=== PATIENT | female | born 1940 | race Caucasian/White ===

== ENCOUNTER 2016-12-30 03:10 | Inpatient (IN) | payer MEDICARE, MEDICAID ==
[2016-12-30] MEDS ORDERED: Promethazine 25 MG in Sodium Chloride 0.9% 50 ML IV STA (03:30)
[2016-12-30] MEDS ORDERED: diphenhydrAMINE 50 MG/ML SDV IVPUSH ONE (03:54)
--- NOTE | 2016-12-30 04:00 | EDM.PDOC ---
ED HPI GENERAL MEDICAL PROBLEM - General Chief Complaint: General Stated Complaint: NAUSEA Time Seen by Provider: 12/30/16 03:40 Source of Information: Reports: Patient History Limitations: Reports: No limitations - History of Present Illness INITIAL COMMENTS - FREE TEXT/NARRATIVE: Patient presents with complaints of explosive diarrhea and vomiting for the last 3 hours. She states she has had multiple episodes of both prior to coming here. Hit very suddenly. Stools are "like water". Continues to feel nauseated. Has vomited x1 and had multiple loose stools by my arrival in the ER. States was having more trouble breathing as of late. Was in [place] on the to get refills of her oxygen and supplies and had an oxygen sat done there and it was low so they sent her to the [place] [facility]. She was advised to be admitted for her lungs at that time but didn't "want to be in another facility other than here with her own doctors". She was sent home with Levaquin which they have not filled. No other antibiotic use. She denies fever. Has abdominal cramping prior to stools. "is wore out already from this". Onset: sudden Duration: Hour(s): Location: Reports: abdomen Quality: Reports: Other (cramping) Associated Symptoms: Reports: nausea/vomiting, weakness, other (diarrhea). Denies: fever/chills - Related Data Allergies Allergy/AdvReac Type Severity Reaction Status Date / Time amoxicillin Allergy Itching Verified 06/06/16 19:35 aspirin Allergy Cannot Verified 06/06/16 19:35 Remember cephalexin monohydrate Allergy Dizziness Verified 06/06/16 19:35 [From Keflex] codeine Allergy Nausea Verified 06/06/16 19:35 gabapentin Allergy Cannot Verified 06/06/16 19:35 Remember kiwi Allergy Itching Verified 06/06/16 19:35 loratadine Allergy Headache Verified 06/06/16 19:35 montelukast sodium Allergy Nausea Verified 06/06/16 19:35 [From Singulair] morphine Allergy Nausea Verified 06/06/16 19:35 paroxetine HCl [From Paxil] Allergy Itching Verified 06/06/16 19:35 pregabalin [From Lyrica] Allergy Syncope Verified 06/06/16 19:35 procaine HCl [From Novocain] Allergy Rash Verified 06/06/16 19:35 solumedrol Allergy Itching Uncoded 06/06/16 19:35 Home Meds: Home Meds ALPRAZolam [Alprazolam] 0.5 mg PO Q8H PRN 05/01/14 [History] Cyanocobalamin (Vitamin B12) [Vitamin B12] 1,000 mcg IM Q30D 05/01/14 [History] Esomeprazole Magnesium [Nexium] 40 mg PO ACBREAKFAST 05/01/14 [History] Furosemide 40 mg PO DAILY 05/01/14 [History] Hydrocodone/Acetaminophen [Hydrocodone-Acetaminophen 5-325] 1 tab PO Q6H PRN [History] Multivit-Min/FA/Lycopene/Lut [Centrum Silver] 1 tab PO DAILY 05/01/14 [History] Potassium Chloride [Klor-Con 10] 10 meq PO BID 05/01/14 [History] Roflumilast [Daliresp] 500 mcg PO DAILY 05/01/14 [History] Rosuvastatin [Crestor] 5 mg PO BEDTIME 05/01/14 [History] Sertraline [Zoloft] 150 mg PO BEDTIME 05/01/14 [History] Valsartan [Diovan] 160 mg PO DAILY 05/01/14 [History] Zolpidem [Ambien] 5 mg PO BEDTIME PRN 05/01/14 [History] Albuterol [Proair HFA] 2 puff INH Q4H PRN 04/28/15 [History] Ibuprofen 400 - 800 mg PO Q8H PRN 04/28/15 [History] Ranitidine [Zantac] 150 mg PO BEDTIME 09/18/15 [History] Albuterol [Proventil Neb Soln] 2.5 mg NEB Q4H PRN #180 ml 09/19/15 [Rx] Albuterol/Ipratropium [DuoNeb 3.0-0.5 MG/3 ML] 3 ml INH QID #360 ml 09/19/15 [Rx ] Carbidopa/Levodopa [Carbidopa-Levodopa 25-100] 1 tab PO TID PRN #0 tablet [Rx] Nystatin [Nystatin Crm] 1 applic TOP QID PRN 06/06/16 [History] Past Medical History HEENT History: Reports: Cataract, Hard of hearing, Impaired vision Cardiovascular History: Reports: Aneurysm, High cholesterol, Hypertension, [place] Respiratory History: Reports: Asthma, COPD, SOB Gastrointestinal History: Reports: GERD Other Genitourinary History: HYSTERECTOMY Musculoskeletal History: Reports: Fibromyalgia Other Neuro History: meningitis Psychiatric History: Reports: Anxiety, Depression Other Dermatologic History: shingles - Past Surgical History HEENT Surgical History: Reports: Cataract surgery Other Cardiovascular Surgeries/Procedures: heart cath in 1980 GI Surgical History: Reports: Appendectomy Neurological Surgical History: Reports: Other (see below) Other Neurological Surgeries/Procedures: spinal surgery Musculoskeletal Surgical History: Reports: Knee replacement Social & Family History - Family History Family Medical History: Noncontributory - Tobacco Use Smoking Status *Q: Former Smoker Years of Tobacco use: 20 Packs/Tins Daily: 3 Used Tobacco, but Quit: No Month Tobacco Last Used: 1965 Second Hand Smoke Exposure: No - Alcohol Use Days Per Week of Alcohol Use: 0 - Recreational Drug Use Recreational Drug Use: No - Living Situation & Occupation Living situation: Reports: , with spouse Occupation: retired ED ROS GENERAL - Review of Systems Review Of Systems: See Below Constitutional: Reports: malaise, weakness, fatigue, diaphoresis. Denies: fever , chills, decreased appetite HEENT: Reports: No symptoms Respiratory: Reports: shortness of breath, wheezing, cough Cardiovascular: Denies: Chest pain, Edema, Lightheadedness Endocrine: Reports: fatigue GI/Abdominal: Reports: Abdominal pain, Diarrhea, Nausea, Vomiting : Reports: no symptoms Musculoskeletal: Reports: leg pain (restless legs) Skin: Reports: diaphoresis Neurological: Reports: no symptoms ED EXAM, GENERAL - Physical Exam Exam: See Below Exam Limited By: No limitations General Appearance: alert, WD/WN, mild distress Ears: normal external exam, normal TMs Nose: normal inspection, normal mucosa, no blood Throat/Mouth: Normal inspection, Normal oropharynx Head: normocephalic Neck: normal inspection, supple, non-tender Respiratory/Chest: no respiratory distress, decreased breath sounds, wheezing Cardiovascular: regular rate, rhythm, no edema GI/Abdominal: soft, tender, abnormal bowel sounds: (hyperactive) Neurological: alert, oriented Skin Exam: Diaphoretic Course - Orders/Labs/Meds Orders: Active Orders 24 hr Category Date Time Status Promethazine [Phenergan] 25 mg Med 12/30/16 03:30 Active Sodium Chloride 0.9% [Normal Saline] 50 ml IV NOW diphenhydrAMINE [Benadryl] Med 12/30/16 03:54 Once 25 mg IVPUSH ONETIME ONE Medication Orders Promethazine HCl 25 mg/ Sodium (Chloride) 51 mls @ 100 mls/hr IV NOW STA Stop: 12/30/16 04:00 Last Admin: 12/30/16 03:40 Dose: 100 mls/hr Meds: Medications Generic Name Dose Route Start Last Admin Trade Name Rachael PRN Reason Stop Dose Admin Promethazine HCl 25 mg/ Sodium 51 mls @ 100 mls/hr 12/30/16 03:30 12/30/16 03 :40 Chloride IV 12/30/16 04:00 100 mls/hr NOW STA Administration Departure - Departure Time of Disposition: 04:03 Disposition: Refer to Observation Clinical Impression: Gastroenteritis Forms: ED Department Discharge - Problem List & Annotations (1) Gastroenteritis SNOMED Code(s): 32239280 Code(s): K52.9 - NONINFECTIVE GASTROENTERITIS AND COLITIS, UNSPECIFIED Status: Acute Current Visit: Yes - My Orders Last 24 Hours: My Active Orders 12/30/16 03:30 Promethazine [Phenergan] 25 mg Sodium Chloride 0.9% [Normal Saline] 50 ml IV NOW 12/30/16 03:54 diphenhydrAMINE [Benadryl] 25 mg IVPUSH ONETIME ONE - Assessment/Plan Admission H&P: Please use this note as an admission H&P Last 24 Hours: My Active Orders 12/30/16 03:30 Promethazine [Phenergan] 25 mg Sodium Chloride 0.9% [Normal Saline] 50 ml IV NOW 12/30/16 03:54 diphenhydrAMINE [Benadryl] 25 mg IVPUSH ONETIME ONE Assessment:: Gastroenteritis Plan: Admit to observation for gastroenteritis. We did give her phenergan in the ER for nausea which helped that but she developed significant restless legs from it. Benadryl then given. Caused drowsiness. Will admit for IV fluids, zofran and see how she does over the next few hours. Dr. stone notified of admission and agrees with plan.
[2016-12-30] MEDS ORDERED: Ondansetron 4 MG/2 ML SDV IV PRN (04:38)
[2016-12-30] MEDS ORDERED: Sodium Chloride 0.9% 10 ML Syringe FLUSH PRN (04:38)
[2016-12-30] MEDS ORDERED: Pantoprazole 40 MG Vial IVPUSH SCH (05:00)
[2016-12-30] MEDS ORDERED: Enoxaparin 30 MG/0.3 ML Syringe SUBCUT SCH (05:00)
[2016-12-30] MEDS: Lactated Ringers 1,000 ML IV SCH ×2 (05:03→15:14)
[2016-12-30] MEDS: Ondansetron 4 MG Tab.DIS PO PRN ×3 (07:40→20:37)
[2016-12-30] MEDS ORDERED: Levofloxacin/Dextrose 5%-Water 500 MG in Premix Bag 1 BAG IV SCH (08:00)
[2016-12-30 08:07] LABS: CHLORIDE,CL 108 mEq/L (98-106); SODIUM,NA 145 mEq/L (136-145)
[2016-12-30] MEDS: Albuterol 0.083% 2.5 MG/3 ML Neb Soln NEB SCH ×4 (09:00→20:50)
[2016-12-30] MEDS ORDERED: metroNIDAZOLE/Normal Saline 500 MG in Premix Bag 1 BAG IV ONE (11:00)
[2016-12-30] MEDS ORDERED: traMADol 50 MG Tab PO PRN (12:14)
[2016-12-30] MEDS: Budesonide 0.5 MG/2 ML Neb Susp NEB SCH ×2 (13:44→20:50)
[2016-12-30] MEDS ORDERED: Albuterol 8 GM Inhaler INH PRN (13:57)
[2016-12-30] MEDS ORDERED: Albuterol 0.083% 2.5 MG/3 ML Neb Soln NEB PRN (13:57)
[2016-12-30] MEDS ORDERED: Losartan 100 MG Tab PO SCH ×2 (14:00→14:30)
[2016-12-30] MEDS ORDERED: Albuterol/Ipratropium 3.0-0.5 MG/3 ML Neb Soln INH SCH (16:00)
[2016-12-30] MEDS: Furosemide 40 MG Tab PO SCH (16:49)
[2016-12-30] MEDS: ROFLUMILAST 500 MCG PO SCH (16:51)
[2016-12-30] MEDS: VALSARTAN 160 MG PO SCH (16:51)
[2016-12-30] MEDS: Potassium Chloride 10 MEQ Tab.ER PO SCH (16:52)
[2016-12-30] MEDS: Acetaminophen/HYDROcodone 325-5 MG Tab PO PRN (16:53)
[2016-12-30] MEDS: metroNIDAZOLE/Normal Saline 500 MG in Premix Bag 1 BAG IV SCH (16:54)
[2016-12-30] MEDS ORDERED: ROSUVASTATIN 5 MG PO SCH (20:00)
[2016-12-30] MEDS ORDERED: Simvastatin 20 MG Tab PO SCH (20:00)
[2016-12-30] MEDS: Sertraline 100 MG Tab PO SCH (20:39)
[2016-12-30] MEDS: ALPRAZolam 0.25 MG Tab PO PRN (20:47)
[2016-12-30] MEDS: Carbidopa/Levodopa 25-100 MG Tab PO PRN (20:53)
[2016-12-30] MEDS ORDERED: Budesonide 0.5 MG/2 ML Neb Susp NEB SCH (21:00)
[2016-12-31] MEDS: metroNIDAZOLE/Normal Saline 500 MG in Premix Bag 1 BAG IV SCH ×3 (00:04→15:43)
[2016-12-31] MEDS: Lactated Ringers 1,000 ML IV SCH ×2 (00:10→10:05)
[2016-12-31] MEDS: Acetaminophen/HYDROcodone 325-5 MG Tab PO PRN ×3 (03:35→15:43)
[2016-12-31 08:38] LABS: CHLORIDE,CL 107 mEq/L (98-106); SODIUM,NA 144 mEq/L (136-145)
[2016-12-31] MEDS: VALSARTAN 160 MG PO SCH (08:57)
[2016-12-31] MEDS: Potassium Chloride 10 MEQ Tab.ER PO SCH ×2 (08:57→17:13)
[2016-12-31] MEDS: Furosemide 40 MG Tab PO SCH (08:58)
[2016-12-31] MEDS: ROFLUMILAST 500 MCG PO SCH (08:59)
[2016-12-31] MEDS: Enoxaparin 30 MG/0.3 ML Syringe SUBCUT SCH (09:14)
[2016-12-31] MEDS: Pantoprazole 40 MG Vial IVPUSH SCH (09:14)
[2016-12-31] MEDS: Albuterol 0.083% 2.5 MG/3 ML Neb Soln NEB SCH ×4 (09:37→20:55)
[2016-12-31] MEDS: Budesonide 0.5 MG/2 ML Neb Susp NEB SCH ×2 (09:38→20:55)
[2016-12-31] MEDS: Ibuprofen 200 MG Tab PO PRN ×2 (11:10→20:54)
--- NOTE | 2016-12-31 14:20 | PCM.PN ---
- General Info Date of Service: 12/31/16 Admission Dx/Problem (Free Text): C diff infection Functional Status: Reports: tolerating diet, ambulating, urinating. Denies: pain controlled - Review of Systems General: Reports: fever, weakness, fatigue HEENT: Reports: rhinitis. Denies: ear pain, sinus congestion Pulmonary: Reports: shortness of breath, cough. Denies: wheezing Cardiovascular: Denies: chest pain, edema, lightheadedness Gastrointestinal: Reports: Abdominal pain, Decreased appetite, Diarrhea. Denies : Constipation, Nausea, Vomiting Genitourinary: Reports: no symptoms Musculoskeletal: Reports: back pain Skin: Reports: no symptoms Neurological: Reports: no symptoms Psychiatric: Reports: no symptoms - Patient Data Vitals - most recent: Last Vital Signs Temp 98.9 F 12/31/16 08:00 Pulse 101 H 12/31/16 08:00 Resp 20 12/31/16 08:00 BP 134/82 12/31/16 08:00 Pulse Ox 95 12/31/16 08:00 Weight - most recent: 182 lb 1.6 oz Med Orders - Current: Current Medications Acetaminophen/Hydrocodone Bitart ([place] 325-5 Mg) 1 tab PO Q6H PRN PRN Reason: Pain Last Admin: 12/31/16 09:15 Dose: 1 tab Albuterol (Proventil Neb Soln) 2.5 mg NEB QIDRT [facility] Last Admin: 12/31/16 13:47 Dose: 2.5 mg Albuterol (Ventolin Hfa) 0 gm INH Q4H PRN PRN Reason: Shortness of Breath Albuterol (Proventil Neb Soln) 2.5 mg NEB Q4H PRN PRN Reason: Shortness of Breath Alprazolam (Xanax) 0.5 - 1 mg PO Q8H PRN PRN Reason: Anxiety Last Admin: 12/30/16 20:47 Dose: 0.5 mg Budesonide (Pulmicort) 0.5 mg NEB BIDRT [facility] Last Admin: 12/31/16 09:38 Dose: 0.5 mg Carbidopa/Levodopa (Sinemet 25-100 Mg) 1 tab PO TID PRN PRN Reason: RESTLESS LEGS Last Admin: 12/30/16 20:53 Dose: 1 tab Cyanocobalamin (Vitamin B12) 1,000 mcg IM Q30D [facility] Enoxaparin Sodium (Lovenox) 30 mg SUBCUT Q24H [facility] Last Admin: 12/31/16 09:14 Dose: 30 mg Furosemide (Lasix) 40 mg PO DAILY [facility] Last Admin: 12/31/16 08:58 Dose: 40 mg Lactated Ringer's (Ringers, Lactated) 1,000 mls @ 50 mls/hr IV ASDIRECTED [facility] Last Admin: 12/31/16 10:05 Dose: 50 mls/hr Metronidazole 500 mg/ Premix 100 mls @ 100 mls/hr IV Q8H [facility] Last Admin: 12/31/16 09:00 Dose: 100 mls/hr Ibuprofen (Motrin) 400 mg PO Q6H PRN PRN Reason: Fever Losartan Potassium (Cozaar) 100 mg PO DAILY [facility] Ptom (Roflumilast [ (Daliresp] 500 Mcg)) 500 mcg PO DAILY [facility] Last Admin: 12/31/16 08:59 Dose: Not Given Ondansetron HCl (Zofran Odt) 4 mg PO Q4H PRN PRN Reason: nausea, able to take PO Last Admin: 12/30/16 20:37 Dose: 4 mg Ondansetron HCl (Zofran) 4 mg IV Q4H PRN PRN Reason: Nausea/Vomiting Last Admin: 12/30/16 05:17 Dose: 4 mg Pantoprazole Sodium (Protonix Iv) 40 mg IVPUSH Q24H [facility] Last Admin: 12/31/16 09:14 Dose: 40 mg Potassium Chloride (Klor-Con 10) 10 meq PO BIDMEALS [facility] Last Admin: 12/31/16 08:57 Dose: 10 meq Sertraline HCl (Zoloft) 150 mg PO BEDTIME [facility] Last Admin: 12/30/16 20:39 Dose: 150 mg Simvastatin (Zocor) 20 mg PO BEDTIME [facility] Sodium Chloride (Saline Flush) 10 ml FLUSH ASDIRECTED PRN PRN Reason: Keep Vein Open Tramadol HCl (Ultram) 50 mg PO Q6H PRN PRN Reason: Abdominal Pain Last Admin: 12/30/16 12:42 Dose: 50 mg Discontinued Medications Diphenhydramine HCl (Benadryl) 25 mg IVPUSH ONETIME ONE Stop: 12/30/16 03:55 Last Admin: 12/30/16 04:02 Dose: 25 mg Enoxaparin Sodium (Lovenox) 30 mg SUBCUT Q24H [facility] Last Admin: 12/30/16 05:03 Dose: 30 mg Promethazine HCl 25 mg/ Sodium (Chloride) 51 mls @ 100 mls/hr IV NOW STA Stop: 12/30/16 04:00 Last Admin: 12/30/16 03:40 Dose: 100 mls/hr Levofloxacin/Dextrose 500 mg/ (Premix) 100 mls @ 100 mls/hr IV Q24H [facility] Last Admin: 12/30/16 09:04 Dose: 100 mls/hr Metronidazole 500 mg/ Premix 100 mls @ 100 mls/hr IV ONETIME ONE Stop: 12/30/16 11:59 Last Admin: 12/30/16 11:52 Dose: 100 mls/hr Losartan Potassium (Cozaar) 100 mg PO DAILY [facility] Last Admin: 12/30/16 16:36 Dose: Not Given Ptom-Valsartan 160mg (Tab) 1 each PO DAILY [facility] Last Admin: 12/31/16 08:57 Dose: 1 each Ptom-Rosuvastatin (5mg Tab) 1 each PO BEDTIME [facility] Last Admin: 12/30/16 20:39 Dose: 1 each Pantoprazole Sodium (Protonix Iv) 40 mg IVPUSH Q24H [facility] Last Admin: 12/30/16 05:03 Dose: 40 mg Simvastatin (Zocor) 20 mg PO BEDTIME [facility] - Exam Quality Assessment: supplemental oxygen General: alert, oriented HEENT: Mucous membr. moist/pink Neck: supple Lungs: Decreased breath sounds, Wheezing Cardiovascular: regular rate, regular rhythm Abdomen: bowel sounds present, soft, tenderness (midepigastric) Back Exam: normal inspection Extremities: no edema Skin: warm, dry Neurological: no new focal deficit Psy/Mental Status: alert, normal affect, normal mood - Problem List & Annotations (1) Gastroenteritis SNOMED Code(s): 80000220 Code(s): K52.9 - NONINFECTIVE GASTROENTERITIS AND COLITIS, UNSPECIFIED Status: Ruled-out Current Visit: Yes (2) C. difficile diarrhea SNOMED Code(s): 205911222, 068427664 Code(s): A04.7 - ENTEROCOLITIS DUE TO CLOSTRIDIUM DIFFICILE Status: Acute Priority: High Current Visit: Yes - Problem List Review Problem List Initiated/Reviewed/Updated: Yes - My Orders Last 24 Hours: My Active Orders 12/31/16 11:09 Ibuprofen [Motrin] 400 mg PO Q6H PRN 12/31/16 20:00 Simvastatin [Zocor] 20 mg PO BEDTIME 12/31/16 Lunch Full Liquid Diet [DIET] 01/01/17 08:00 Losartan [Cozaar] 100 mg PO DAILY - Assessment Assessment:: C Diff Diarrhea - Plan Plan:: Patient improved today. States continues to have diarrhea but now only every 1- 2 hours versus every 15". She does have cramping and midepigastric discomfort associated with this but feels she can tolerated her clear liquid diet better now. No further nausea. Is having increased back pain from lying so much. Labs noted, WBC down to 12.7. CRP increased to 4.6. Will reduce IV fluid rate , increase to full liquids and see how she tolerates. Continue with her usual NOrco for pain. IV Flagyl for the infection. Reevaluate discharge potential in the am.
[2016-12-31] MEDS: Simvastatin 20 MG Tab PO SCH (20:53)
[2016-12-31] MEDS: Sertraline 100 MG Tab PO SCH (20:54)
[2016-12-31] MEDS ORDERED: Oxyquinoline/Emollient 0.3% Oint 1 OZ Canister TOP PRN (21:20)
[2016-12-31] MEDS: ALPRAZolam 0.25 MG Tab PO PRN (22:40)
[2016-12-31] MEDS: Carbidopa/Levodopa 25-100 MG Tab PO PRN (22:40)
[2017-01-01] MEDS: metroNIDAZOLE/Normal Saline 500 MG in Premix Bag 1 BAG IV SCH ×3 (00:13→16:10)
[2017-01-01] MEDS: Carbidopa/Levodopa 25-100 MG Tab PO PRN ×2 (07:36→16:11)
[2017-01-01] MEDS: Potassium Chloride 10 MEQ Tab.ER PO SCH ×2 (07:36→17:36)
[2017-01-01] MEDS: Pantoprazole 40 MG Vial IVPUSH SCH (07:36)
[2017-01-01] MEDS: Enoxaparin 30 MG/0.3 ML Syringe SUBCUT SCH (07:36)
[2017-01-01] MEDS: Furosemide 40 MG Tab PO SCH (07:36)
[2017-01-01] MEDS: Losartan 100 MG Tab PO SCH (07:37)
[2017-01-01] MEDS: ROFLUMILAST 500 MCG PO SCH (07:38)
[2017-01-01 07:41] LABS: CHLORIDE,CL 111 mEq/L (98-106); SODIUM,NA 144 mEq/L (136-145)
[2017-01-01] MEDS: ALPRAZolam 0.25 MG Tab PO PRN ×2 (07:45→16:10)
[2017-01-01] MEDS: Acetaminophen/HYDROcodone 325-5 MG Tab PO PRN ×2 (07:45→16:10)
[2017-01-01] MEDS: Lactated Ringers 1,000 ML IV SCH (07:48)
[2017-01-01] MEDS: Albuterol 0.083% 2.5 MG/3 ML Neb Soln NEB SCH ×4 (09:00→21:03)
[2017-01-01] MEDS: Budesonide 0.5 MG/2 ML Neb Susp NEB SCH ×2 (09:00→21:03)
--- NOTE | 2017-01-01 09:01 | PCM.PN ---
- General Info Date of Service: 01/01/17 Admission Dx/Problem (Free Text): C diff infection Functional Status: Reports: ambulating. Denies: pain controlled, tolerating diet - Review of Systems General: Reports: fever, weakness, fatigue HEENT: Reports: sinus congestion, rhinitis. Denies: ear pain, sore throat Pulmonary: Reports: shortness of breath. Denies: cough, wheezing Cardiovascular: Denies: chest pain, edema, lightheadedness Gastrointestinal: Reports: Abdominal pain, Diarrhea. Denies: Nausea, Vomiting Genitourinary: Reports: no symptoms Musculoskeletal: Reports: back pain Skin: Reports: no symptoms Neurological: Reports: no symptoms - Patient Data Vitals - most recent: Last Vital Signs Temp 98.8 F 01/01/17 08:00 Pulse 109 H 01/01/17 08:00 Resp 18 01/01/17 08:00 BP 126/64 01/01/17 08:00 Pulse Ox 96 01/01/17 08:00 Weight - most recent: 182 lb 1.6 oz I&O - last 24 hours: Intake & Output 12/31/16 01/01/17 01/01/17 22:59 06:59 14:59 Intake Total 1600 1280 Output Total 100 300 Balance 1500 980 Lab Results last 24 hrs: Laboratory Results - last 24 hr 01/01/17 01/01/17 Range/Units 07:00 07:00 WBC 9.3 (5.0-10.0) 10^3/uL RBC 3.04 L (4.00-5.50) 10^6/uL Hgb 10.5 L (12.0-16.0) g/dL Hct 33.5 L (37.0-47.0) % MCV 110.2 H (82.0-94.0) fL MCH 34.5 H (27.0-32.0) pg MCHC 31.3 L (33.0-38.0) g/dL RDW Coeff of Claude 15.7 H (11.0-15.0) % Plt Count 223 (150-400) 10^3/uL Neut % (Auto) 80.4 (35-85) % Lymph % (Auto) 11.4 (10-55) % [place] % (Auto) 7.8 (0-16) % Eos % (Auto) 0.3 (0-5) % Baso % (Auto) 0.1 (0-3) % Neut # 7.49 H (1.80-7.00) 10^3/uL Lymph # 1.06 (1.00-4.80) 10^3/uL [place] # 0.73 (0.00-0.80) 10^3/uL Eos # 0.03 (0.00-0.45) 10^3/uL Baso # 0.01 10^3/uL Sodium 144 (136-145) mEq/L Potassium 3.5 (3.5-5.0) mEq/L Chloride 111 H (98-106) mEq/L Carbon Dioxide 27 (21-32) mmol/L BUN 15 (7-18) mg/dL Creatinine 0.7 (0.6-1.0) mg/dL Est Cr Clr Drug Dosing 57.44 mL/min Estimated GFR (MDRD) > 60 (>=60) mL/min Glucose 101 H (75-99) mg/dL Calcium 7.7 L (8.4-10.1) mg/dL C-Reactive Protein 4.8 H (0.2-0.8) mg/dL Med Orders - Current: Current Medications Acetaminophen/Hydrocodone Bitart ([place] 325-5 Mg) 1 tab PO Q6H PRN PRN Reason: Pain Last Admin: 01/01/17 07:45 Dose: 1 tab Albuterol (Proventil Neb Soln) 2.5 mg NEB QIDRT [facility] Last Admin: 12/31/16 20:55 Dose: 2.5 mg Albuterol (Ventolin Hfa) 0 gm INH Q4H PRN PRN Reason: Shortness of Breath Albuterol (Proventil Neb Soln) 2.5 mg NEB Q4H PRN PRN Reason: Shortness of Breath Alprazolam (Xanax) 0.5 - 1 mg PO Q8H PRN PRN Reason: Anxiety Last Admin: 01/01/17 07:45 Dose: 0.5 mg Budesonide (Pulmicort) 0.5 mg NEB BIDRT [facility] Last Admin: 12/31/16 20:55 Dose: 0.5 mg Carbidopa/Levodopa (Sinemet 25-100 Mg) 1 tab PO TID PRN PRN Reason: RESTLESS LEGS Last Admin: 01/01/17 07:36 Dose: 1 tab Cyanocobalamin (Vitamin B12) 1,000 mcg IM Q30D [facility] Enoxaparin Sodium (Lovenox) 30 mg SUBCUT Q24H [facility] Last Admin: 01/01/17 07:36 Dose: 30 mg Furosemide (Lasix) 40 mg PO DAILY [facility] Last Admin: 01/01/17 07:36 Dose: 40 mg Lactated Ringer's (Ringers, Lactated) 1,000 mls @ 50 mls/hr IV ASDIRECTED [facility] Last Admin: 01/01/17 07:48 Dose: 50 mls/hr Metronidazole 500 mg/ Premix 100 mls @ 100 mls/hr IV Q8H [facility] Last Admin: 01/01/17 07:38 Dose: 100 mls/hr Ibuprofen (Motrin) 400 mg PO Q6H PRN PRN Reason: Fever Last Admin: 12/31/16 20:54 Dose: 400 mg Losartan Potassium (Cozaar) 100 mg PO DAILY [facility] Last Admin: 01/01/17 07:37 Dose: 100 mg Ptom (Roflumilast [ (Daliresp] 500 Mcg)) 500 mcg PO DAILY [facility] Last Admin: 01/01/17 07:38 Dose: Not Given Ondansetron HCl (Zofran Odt) 4 mg PO Q4H PRN PRN Reason: nausea, able to take PO Last Admin: 12/30/16 20:37 Dose: 4 mg Ondansetron HCl (Zofran) 4 mg IV Q4H PRN PRN Reason: Nausea/Vomiting Last Admin: 12/30/16 05:17 Dose: 4 mg Oxyquinoline Sulfate (Bag [place] Oint) 1 oz TOP ASDIRECTED PRN PRN Reason: Wound Care Pantoprazole Sodium (Protonix Iv) 40 mg IVPUSH Q24H [facility] Last Admin: 01/01/17 07:36 Dose: 40 mg Potassium Chloride (Klor-Con 10) 10 meq PO BIDMEALS [facility] Last Admin: 01/01/17 07:36 Dose: 10 meq Sertraline HCl (Zoloft) 150 mg PO BEDTIME [facility] Last Admin: 12/31/16 20:54 Dose: 150 mg Simvastatin (Zocor) 20 mg PO BEDTIME [facility] Last Admin: 12/31/16 20:53 Dose: 20 mg Sodium Chloride (Saline Flush) 10 ml FLUSH ASDIRECTED PRN PRN Reason: Keep Vein Open Tramadol HCl (Ultram) 50 mg PO Q6H PRN PRN Reason: Abdominal Pain Last Admin: 12/30/16 12:42 Dose: 50 mg Discontinued Medications Diphenhydramine HCl (Benadryl) 25 mg IVPUSH ONETIME ONE Stop: 12/30/16 03:55 Last Admin: 12/30/16 04:02 Dose: 25 mg Enoxaparin Sodium (Lovenox) 30 mg SUBCUT Q24H [facility] Last Admin: 12/30/16 05:03 Dose: 30 mg Promethazine HCl 25 mg/ Sodium (Chloride) 51 mls @ 100 mls/hr IV NOW STA Stop: 12/30/16 04:00 Last Admin: 12/30/16 03:40 Dose: 100 mls/hr Levofloxacin/Dextrose 500 mg/ (Premix) 100 mls @ 100 mls/hr IV Q24H [facility] Last Admin: 12/30/16 09:04 Dose: 100 mls/hr Metronidazole 500 mg/ Premix 100 mls @ 100 mls/hr IV ONETIME ONE Stop: 12/30/16 11:59 Last Admin: 12/30/16 11:52 Dose: 100 mls/hr Losartan Potassium (Cozaar) 100 mg PO DAILY [facility] Last Admin: 12/30/16 16:36 Dose: Not Given Ptom-Valsartan 160mg (Tab) 1 each PO DAILY [facility] Last Admin: 12/31/16 08:57 Dose: 1 each Ptom-Rosuvastatin (5mg Tab) 1 each PO BEDTIME [facility] Last Admin: 12/30/16 20:39 Dose: 1 each Pantoprazole Sodium (Protonix Iv) 40 mg IVPUSH Q24H [facility] Last Admin: 12/30/16 05:03 Dose: 40 mg Simvastatin (Zocor) 20 mg PO BEDTIME [facility] - Exam Quality Assessment: supplemental oxygen General: alert, oriented HEENT: Mucous membr. moist/pink Neck: supple Lungs: Decreased breath sounds Cardiovascular: regular rate, regular rhythm Abdomen: bowel sounds present, soft, tenderness Extremities: no edema Skin: warm, dry Neurological: no new focal deficit Psy/Mental Status: alert, normal affect, normal mood - Problem List & Annotations (1) Gastroenteritis SNOMED Code(s): 88011481 Code(s): K52.9 - NONINFECTIVE GASTROENTERITIS AND COLITIS, UNSPECIFIED Status: Ruled-out Current Visit: Yes (2) C. difficile diarrhea SNOMED Code(s): 021739514, [id number] Code(s): A04.7 - ENTEROCOLITIS DUE TO CLOSTRIDIUM DIFFICILE Status: Acute Priority: High Current Visit: Yes - Problem List Review Problem List Initiated/Reviewed/Updated: Yes - My Orders Last 24 Hours: My Active Orders 12/31/16 11:09 Ibuprofen [Motrin] 400 mg PO Q6H PRN 12/31/16 20:00 Simvastatin [Zocor] 20 mg PO BEDTIME 12/31/16 Lunch Full Liquid Diet [DIET] 01/01/17 08:00 Losartan [Cozaar] 100 mg PO DAILY - Assessment Assessment:: C Diff Diarrhea - Plan Plan:: Patient improved today. States continues to have diarrhea but now only every 1- 2 hours versus every 15". She does have cramping and midepigastric discomfort associated with this but feels she can tolerated her clear liquid diet better now. No further nausea. Is having increased back pain from lying so much. Labs noted, WBC down to 12.7. CRP increased to 4.6. Will reduce IV fluid rate , increase to full liquids and see how she tolerates. Continue with her usual NOrco for pain. IV Flagyl for the infection. Reevaluate discharge potential in the am. 01-01-2017 Patient states not feeling well this am. She was up at 3 am with continuous loose stools, incontinent for some. States abdomen now more sore again. Breathing is stable. Tolerating full liquids yesterday, no appetite this am. States restless legs were bad last night as well. Labs are stable today. Potassium stable. Continue IV Flagyl for c diff. Reevaluate in am.
[2017-01-01] MEDS: Simvastatin 20 MG Tab PO SCH (21:02)
[2017-01-01] MEDS: Sertraline 100 MG Tab PO SCH (21:03)
[2017-01-01] MEDS: Ibuprofen 200 MG Tab PO PRN (21:13)
[2017-01-02] MEDS: metroNIDAZOLE/Normal Saline 500 MG in Premix Bag 1 BAG IV SCH ×2 (00:50→08:34)
[2017-01-02] MEDS: Acetaminophen/HYDROcodone 325-5 MG Tab PO PRN (02:10)
[2017-01-02] MEDS: Carbidopa/Levodopa 25-100 MG Tab PO PRN (02:14)
[2017-01-02 08:12] VITALS: BP 130/67
[2017-01-02] MEDS: Potassium Chloride 10 MEQ Tab.ER PO SCH (08:31)
[2017-01-02] MEDS: Furosemide 40 MG Tab PO SCH (08:31)
[2017-01-02] MEDS: Losartan 100 MG Tab PO SCH (08:32)
[2017-01-02] MEDS: Pantoprazole 40 MG Vial IVPUSH SCH (08:33)
[2017-01-02] MEDS: Enoxaparin 30 MG/0.3 ML Syringe SUBCUT SCH (08:34)
[2017-01-02] MEDS: ROFLUMILAST 500 MCG PO SCH (08:36)
[2017-01-02] MEDS: Budesonide 0.5 MG/2 ML Neb Susp NEB SCH (09:12)
[2017-01-02] MEDS: Albuterol 0.083% 2.5 MG/3 ML Neb Soln NEB SCH (09:12)
--- NOTE | 2017-01-03 13:13 | PCM.DCSUM1 ---
Discharge Summary - Hospital Course Free Text/Narrative:: Patient admitted early Friday am for diarrhea and nausea/vomiting. Had 4 hours of nonstop diarrhea prior to presentation by ambulance. Had been not feeling well for the last few days. Was actually seen in the ER at [place] and was sent home for an "infection somewhere" as they noted she had an elevated WBC but couldn't really find a source so she was sent home with oral Levaquin. Patient has yet to fill that medication. That am, she was settling in to bed late and started having abdominal cramping and nausea. Has had multiple loose watery stools. No fevers that she was aware of. Admitted to observation. Patient's initial WBC elevated at 21.7, CRP normal. Started on IV Levaquin and IV fluids. - Discharge Data Discharge Date: 01/02/17 Discharge Disposition: Home, Self-Care 01 Condition: Fair - Discharge Diagnosis/Problem(s) (1) C. difficile diarrhea SNOMED Code(s): 553186754, [id number] ICD Code: A04.7 - ENTEROCOLITIS DUE TO CLOSTRIDIUM DIFFICILE Status: Acute Priority: High - Patient Summary/Data Complications: none Hospital Course: Patient was found to have c diff with stool collection. Started on IV Flagyl every 8 hours. Has slowly improved. Stools much less frequent than on admit. She is now tolerating her diet well. Ambulating short distances per her norm. Has not developed any changes with her breathing. Continues on oxygen per her norm. - Patient Instructions Diet: Usual Diet as Tolerated Activity: As Tolerated Notify Provider of: Fever, Nausea and/or Vomiting - Discharge Plan Prescriptions/Med Rec: metroNIDAZOLE [Flagyl] 500 mg PO Q8H #21 tablet Home Medications: Home Meds ALPRAZolam [Alprazolam] 1 - 2 tab PO Q8H PRN 05/01/14 [History] Cyanocobalamin (Vitamin B12) [Vitamin B12] 1,000 mcg IM Q30D 05/01/14 [History] Esomeprazole Magnesium [Nexium] 40 mg PO ACBREAKFAST 05/01/14 [History] Furosemide 40 mg PO DAILY 05/01/14 [History] Hydrocodone/Acetaminophen [Hydrocodone-Acetaminophen 5-325] 1 tab PO Q6H PRN [History] Multivit-Min/FA/Lycopene/Lut [Centrum Silver] 1 tab PO DAILY 05/01/14 [History] Potassium Chloride [Klor-Con 10] 10 meq PO BID 05/01/14 [History] Roflumilast [Daliresp] 500 mcg PO DAILY 05/01/14 [History] Rosuvastatin [Crestor] 5 mg PO BEDTIME 05/01/14 [History] Sertraline [Zoloft] 150 mg PO BEDTIME 05/01/14 [History] Valsartan [Diovan] 160 mg PO DAILY 05/01/14 [History] Zolpidem [Ambien] 5 mg PO BEDTIME PRN 05/01/14 [History] Albuterol [Proair HFA] 2 puff INH Q4H PRN 04/28/15 [History] Ibuprofen 400 - 800 mg PO Q8H PRN 04/28/15 [History] Ranitidine [Zantac] 150 mg PO BEDTIME 09/18/15 [History] Albuterol [Proventil Neb Soln] 2.5 mg NEB Q4H PRN #180 ml 09/19/15 [Rx] Albuterol/Ipratropium [DuoNeb 3.0-0.5 MG/3 ML] 3 ml INH QID #360 ml 09/19/15 [Rx ] Carbidopa/Levodopa [Carbidopa-Levodopa 25-100] 1 tab PO TID PRN #0 tablet [Rx] Nystatin [Nystatin Crm] 1 applic TOP QID PRN 06/06/16 [History] Budesonide [Pulmicort] 0.5 mg NEB BIDRT 12/30/16 [History] Polyethylene Glycol 3350 [MiraLAX] 17 gm PO DAILY 12/30/16 [History] metroNIDAZOLE [Flagyl] 500 mg PO Q8H #21 tablet 01/02/17 [Rx] Forms: ED Department Discharge Referrals: Lopez Herring MD [Primary Care Provider] - (Follow up with Dr. Herring in 10 days ) - General Info Date of Service: 01/02/17 Admission Dx/Problem (Free Text: C diff infection Functional Status: Reports: pain controlled, tolerating diet, ambulating - Review of Systems General: Reports: fatigue. Denies: fever, weakness, malaise HEENT: Reports: no symptoms Pulmonary: Reports: shortness of breath, cough. Denies: wheezing Cardiovascular: Denies: chest pain, edema, lightheadedness Gastrointestinal: Reports: Diarrhea. Denies: Abdominal pain, Nausea, Vomiting Genitourinary: Reports: no symptoms Musculoskeletal: Reports: no symptoms Skin: Reports: no symptoms Neurological: Reports: no symptoms - Patient Data Vitals - Most Recent: Last Vital Signs Temp 98.3 F 01/02/17 08:00 Pulse 81 01/02/17 08:00 Resp 18 01/02/17 08:00 BP 130/67 01/02/17 08:32 Pulse Ox 95 01/02/17 08:00 Weight - Most Recent: 182 lb 1.6 oz Med Orders - Current: Current Medications Discontinued Medications Acetaminophen/Hydrocodone Bitart ([place] 325-5 Mg) 1 tab PO Q6H PRN PRN Reason: Pain Last Admin: 01/02/17 02:10 Dose: 1 tab Albuterol (Proventil Neb Soln) 2.5 mg NEB QIDRT SHAINA Last Admin: 01/02/17 09:12 Dose: 2.5 mg Albuterol (Ventolin Hfa) 0 gm INH Q4H PRN PRN Reason: Shortness of Breath Albuterol (Proventil Neb Soln) 2.5 mg NEB Q4H PRN PRN Reason: Shortness of Breath Alprazolam (Xanax) 0.5 - 1 mg PO Q8H PRN PRN Reason: Anxiety Last Admin: 01/01/17 16:10 Dose: 0.5 mg Budesonide (Pulmicort) 0.5 mg NEB BIDRT SHAINA Last Admin: 01/02/17 09:12 Dose: 0.5 mg Carbidopa/Levodopa (Sinemet 25-100 Mg) 1 tab PO TID PRN PRN Reason: RESTLESS LEGS Last Admin: 01/02/17 02:14 Dose: 1 tab Cyanocobalamin (Vitamin B12) 1,000 mcg IM Q30D [facility] Diphenhydramine HCl (Benadryl) 25 mg IVPUSH ONETIME ONE Stop: 12/30/16 03:55 Last Admin: 12/30/16 04:02 Dose: 25 mg Enoxaparin Sodium (Lovenox) 30 mg SUBCUT Q24H [facility] Last Admin: 12/30/16 05:03 Dose: 30 mg Enoxaparin Sodium (Lovenox) 30 mg SUBCUT Q24H [facility] Last Admin: 01/02/17 08:34 Dose: 30 mg Furosemide (Lasix) 40 mg PO DAILY [facility] Last Admin: 01/02/17 08:31 Dose: 40 mg Promethazine HCl 25 mg/ Sodium (Chloride) 51 mls @ 100 mls/hr IV NOW STA Stop: 12/30/16 04:00 Last Admin: 12/30/16 03:40 Dose: 100 mls/hr Lactated Ringer's (Ringers, Lactated) 1,000 mls @ 50 mls/hr IV ASDIRECTED [facility] Last Admin: 01/01/17 07:48 Dose: 50 mls/hr Levofloxacin/Dextrose 500 mg/ (Premix) 100 mls @ 100 mls/hr IV Q24H [facility] Last Admin: 12/30/16 09:04 Dose: 100 mls/hr Metronidazole 500 mg/ Premix 100 mls @ 100 mls/hr IV Q8H [facility] Last Admin: 01/02/17 08:34 Dose: Not Given Metronidazole 500 mg/ Premix 100 mls @ 100 mls/hr IV ONETIME ONE Stop: 12/30/16 11:59 Last Admin: 12/30/16 11:52 Dose: 100 mls/hr Ibuprofen (Motrin) 400 mg PO Q6H PRN PRN Reason: Fever Last Admin: 01/01/17 21:13 Dose: 400 mg Losartan Potassium (Cozaar) 100 mg PO DAILY [facility] Last Admin: 12/30/16 16:36 Dose: Not Given Losartan Potassium (Cozaar) 100 mg PO DAILY [facility] Last Admin: 01/02/17 08:32 Dose: 100 mg Ptom (Roflumilast [ (Daliresp] 500 Mcg)) 500 mcg PO DAILY [facility] Last Admin: 01/02/17 08:36 Dose: Not Given Ptom-Valsartan 160mg (Tab) 1 each PO DAILY [facility] Last Admin: 12/31/16 08:57 Dose: 1 each Ptom-Rosuvastatin (5mg Tab) 1 each PO BEDTIME [facility] Last Admin: 12/30/16 20:39 Dose: 1 each Ondansetron HCl (Zofran Odt) 4 mg PO Q4H PRN PRN Reason: nausea, able to take PO Last Admin: 12/30/16 20:37 Dose: 4 mg Ondansetron HCl (Zofran) 4 mg IV Q4H PRN PRN Reason: Nausea/Vomiting Last Admin: 12/30/16 05:17 Dose: 4 mg Oxyquinoline Sulfate ([place] Oint) 1 oz TOP ASDIRECTED PRN PRN Reason: Wound Care Pantoprazole Sodium (Protonix Iv) 40 mg IVPUSH Q24H [facility] Last Admin: 12/30/16 05:03 Dose: 40 mg Pantoprazole Sodium (Protonix Iv) 40 mg IVPUSH Q24H [facility] Last Admin: 01/02/17 08:33 Dose: Not Given Potassium Chloride (Klor-Con 10) 10 meq PO BIDMEALS [facility] Last Admin: 01/02/17 08:31 Dose: 10 meq Sertraline HCl (Zoloft) 150 mg PO BEDTIME [facility] Last Admin: 01/01/17 21:03 Dose: 150 mg Simvastatin (Zocor) 20 mg PO BEDTIME SHAINA Simvastatin (Zocor) 20 mg PO BEDTIME [facility] Last Admin: 01/01/17 21:02 Dose: 20 mg Sodium Chloride (Saline Flush) 10 ml FLUSH ASDIRECTED PRN PRN Reason: Keep Vein Open Tramadol HCl (Ultram) 50 mg PO Q6H PRN PRN Reason: Abdominal Pain Last Admin: 12/30/16 12:42 Dose: 50 mg - Exam Quality Assessment: Reports: supplemental oxygen General: Reports: alert, oriented HEENT: Reports: Mucous membr. moist/pink Neck: Reports: supple Lungs: Reports: Decreased breath sounds Cardiovascular: Reports: regular rate, regular rhythm Abdomen: Reports: bowel sounds present, soft, no tenderness *Q Meaningful Use (DIS) - VTE *Q VTE Criteria *Q: - Stroke *Q Stroke Criteria *Q: - AMI *Q AMI Criteria *Q:
[2017-01-13] MEDS ORDERED: Cyanocobalamin (Vitamin B12) 1,000 MCG/ML SDV IM SCH (14:00)
== END 2017-01-02 10:55 | disposition home or self-care (01) | DRG 373 ==
LOC: CC.ED 03:10 → UNDOADMOB 04:20 → CC.MS 04:20 → INTOOBSV 08:29 → OBSVTOIN 08:29 → UNDODISIN 01-02 10:55
PROVIDERS: ADMIT Physician Assistant Medical; ATTEND Family Medicine
DX: K52.9 Noninfective gastroenteritis and colitis, unspecified (principal); R19.7 Diarrhea, unspecified; R11.2 Nausea with vomiting, unspecified; A04.7 Enterocolitis due to Clostridium difficile; E78.00 Pure hypercholesterolemia, unspecified; I10 Essential (primary) hypertension; J45.909 Unspecified asthma, uncomplicated; J44.9 Chronic obstructive pulmonary disease, unspecified; K21.9 Gastro-esophageal reflux disease without esophagitis; F41.8 Other specified anxiety disorders; R06.02 Shortness of breath; Z87.891 Personal history of nicotine dependence; G25.81 Restless legs syndrome
CPT/HCPCS: 36415 ×2; 71020; 80048; 80053; 81001; 85025 ×2; 86140 ×2; 87045; 87046 ×3; 87493; 89055; 94640 ×2; 96361 ×2; 96365; 96366 ×2; 96367; 96372; 96375 ×3; 99284; A9270 ×12; C9113; G0378; J1200; J1650; J1956; J2405; J2550; J7050; J7120 ×3; J7620 ×3; 99220; A6250

== ENCOUNTER 2017-02-10 21:32 | Emergency (ER) | payer MEDICARE, MEDICAID ==
[~2017-02-10 21:32] MED LIST: Albuterol 0.042% 1.25 MG/3 ML Neb Soln NEB ONE
[2017-02-10] MEDS ORDERED: Budesonide 0.5 MG/2 ML Neb Susp NEB ONE (21:46)
[2017-02-10] MEDS ORDERED: ALPRAZolam 0.25 MG Tab PO ONE (21:58)
--- NOTE | 2017-02-10 22:12 | EDM.PDOC ---
[id number]: short of breath Time Seen by Provider: 02/10/17 21:40 Source of Information: Reports: Patient, Family History Limitations: Reports: Respiratory distress - History of Present Illness INITIAL COMMENTS - FREE TEXT/NARRATIVE: Patient O2 dependant for 10+ years diagnosis COPD and asthma presents to ER with SOB, cough and dyspnea. This is aggravated by exertion and relieved by resting. Patient states has been ill with URI and traveled to a appointment out of town. She states she did not get her nebulizer treatments in today-Pulmicort and Albuterol and around 7:00 pm was feeling poorly. She affirms decreased H2o intake and increased mucous. Persistant dry hacking cough. She presents to ER for treatment. Symptom Onset Date: 02/10/17 Symptom Onset Time: 12:00 Timing/Duration: Reports: Hour(s): (10 hours), Getting worse, Waxing/waning Severity: severe Quality: Reports: Other (Cough and dyspnea) Improves with: Reports: Rest Worsens with: Reports: Movement Context, General: Reports: Activity Associated Symptoms (General): Reports: cough, cough w sputum, shortness of breath - Related Data Allergies/ADRs: Allergies Allergy/AdvReac Type Severity Reaction Status Date / Time amoxicillin Allergy Itching Verified 02/10/17 21:42 aspirin Allergy Cannot Verified 02/10/17 21:42 Remember cephalexin monohydrate Allergy Dizziness Verified 02/10/17 21:42 [From Keflex] codeine Allergy Nausea Verified 02/10/17 21:42 gabapentin Allergy Cannot Verified 02/10/17 21:42 Remember kiwi Allergy Itching Verified 02/10/17 21:42 loratadine Allergy Headache Verified 02/10/17 21:42 montelukast sodium Allergy Nausea Verified 02/10/17 21:42 [From Singulair] morphine Allergy Nausea Verified 02/10/17 21:42 nitrofurantoin Allergy Diarrhea Verified 02/10/17 21:50 [From Macrobid] paroxetine HCl [From Paxil] Allergy Itching Verified 02/10/17 21:42 pregabalin [From Lyrica] Allergy Syncope Verified 02/10/17 21:42 procaine HCl [From Novocain] Allergy Rash Verified 02/10/17 21:42 promethazine [From Phenergan] Allergy Nervousness Verified 02/10/17 21:42 solumedrol Allergy Itching Uncoded 12/30/16 04:04 Home Meds: Home Meds ALPRAZolam [Alprazolam] 1 - 2 tab PO Q8H PRN 05/01/14 [History] Cyanocobalamin (Vitamin B12) [Vitamin B12] 1,000 mcg IM Q30D 05/01/14 [History] Esomeprazole Magnesium [Nexium] 40 mg PO ACBREAKFAST 05/01/14 [History] Furosemide 40 mg PO DAILY 05/01/14 [History] Hydrocodone/Acetaminophen [Hydrocodone-Acetaminophen 5-325] 1 tab PO Q6H PRN [History] Multivit-Min/FA/Lycopene/Lut [Centrum Silver] 1 tab PO DAILY 05/01/14 [History] Potassium Chloride [Klor-Con 10] 10 meq PO BID 05/01/14 [History] Roflumilast [Daliresp] 500 mcg PO DAILY 05/01/14 [History] Rosuvastatin [Crestor] 5 mg PO BEDTIME 05/01/14 [History] Sertraline [Zoloft] 150 mg PO BEDTIME 05/01/14 [History] Valsartan [Diovan] 160 mg PO DAILY 05/01/14 [History] Zolpidem [Ambien] 5 mg PO BEDTIME PRN 05/01/14 [History] Albuterol [Proair HFA] 2 puff INH Q4H PRN 04/28/15 [History] Ibuprofen 400 - 800 mg PO Q8H PRN 04/28/15 [History] Ranitidine [Zantac] 150 mg PO BEDTIME 09/18/15 [History] Albuterol [Proventil Neb Soln] 2.5 mg NEB Q4H PRN #180 ml 09/19/15 [Rx] Albuterol/Ipratropium [DuoNeb 3.0-0.5 MG/3 ML] 3 ml INH QID #360 ml 09/19/15 [Rx ] Carbidopa/Levodopa [Carbidopa-Levodopa 25-100] 1 tab PO TID PRN #0 tablet [Rx] Nystatin [Nystatin Crm] 1 applic TOP QID PRN 06/06/16 [History] Budesonide [Pulmicort] 0.5 mg NEB BIDRT 12/30/16 [History] Polyethylene Glycol 3350 [MiraLAX] 17 gm PO DAILY 12/30/16 [History] Mupirocin Cream [Bactroban Crm] 1 applic TOP TID PRN 02/10/17 [History] Clotrimazole/Betamethasone Dip [Lotrisone Cream] 15 gm TP ASDIRECTED PRN [History] Past Medical History HEENT History: Reports: Cataract, Hard of hearing, Impaired vision Cardiovascular History: Reports: Aneurysm, High cholesterol, Hypertension, [place] Respiratory History: Reports: Asthma, COPD, SOB Gastrointestinal History: Reports: GERD Other Genitourinary History: HYSTERECTOMY Musculoskeletal History: Reports: Fibromyalgia Neurological History: Reports: Other (see below) (Polio as child) Other Neuro History: meningitis Psychiatric History: Reports: Anxiety, Depression Endocrine/Metabolic History: Reports: Obesity/BMI 30+ Hematologic History: Reports: None Immunologic History: Reports: None Dermatologic History: Reports: None Other Dermatologic History: shingles - Infectious Disease History Infectious Disease History: Reports: None - Past Surgical History HEENT Surgical History: Reports: Cataract surgery Other Cardiovascular Surgeries/Procedures: heart cath in 1980 GI Surgical History: Reports: Appendectomy Neurological Surgical History: Reports: Other (see below) Other Neurological Surgeries/Procedures: spinal surgery Musculoskeletal Surgical History: Reports: Knee replacement Social & Family History - Family History Family Medical History: Noncontributory HEENT: Reports: None Cardiac: Reports: Hypertension Respiratory: Reports: Asthma, COPD Oncologic: Reports: Colon - Tobacco Use Smoking Status *Q: Former Smoker Years of Tobacco use: 20 Packs/Tins Daily: 3 Used Tobacco, but Quit: No Month Tobacco Last Used: 1965 Second Hand Smoke Exposure: No - Tobacco Core Measures Tobacco Use/Smoking Within Last 30 Days: No - Caffeine Use Caffeine Use: Reports: Coffee, Soda, Tea - Alcohol Use Alcohol Use History: No Days Per Week of Alcohol Use: 0 - Recreational Drug Use Recreational Drug Use: No Drug Use in Last 12 Months: No - Sexual History Sexual History: Reports: None - Living Situation & Occupation Living situation: Reports: , with spouse Occupation: retired ED ROS GENERAL - Review of Systems Review Of Systems: See Below Constitutional: Reports: weakness, fatigue HEENT: Reports: Glasses Respiratory: Reports: Shortness of Breath, Wheezing, Cough, Sputum. Denies: Hemoptysis Cardiovascular: Reports: No symptoms, Dyspnea on exertion, Orthopnea. Denies: Chest pain Endocrine: Reports: no symptoms GI/Abdominal: Reports: No symptoms : Reports: no symptoms Musculoskeletal: Reports: no symptoms Skin: Reports: no symptoms. Denies: pallor, diaphoresis Neurological: Reports: No Symptoms Psychiatric: Reports: Anxiety Hematologic/Lymphatic: Reports: no symptoms Immunologic: Reports: no symptoms ED EXAM, GENERAL - Physical Exam Exam: See Below Exam Limited By: Respiratory distress General Appearance: alert, WD/WN, anxious, moderate distress Eye Exam: bilateral eye: EOMI, PERRL Ears: normal external exam, normal canal Ear Exam: bilateral ear: auricle normal, canal normal, TM normal Nose: normal inspection, normal mucosa, no blood, nasal drainage Throat/Mouth: Normal inspection, Normal lips, Normal teeth, Normal voice Head: atraumatic, normocephalic Neck: normal inspection, supple, non-tender, full range of motion Respiratory/Chest: no accessory muscle use, respiratory distress, decreased breath sounds, wheezing Cardiovascular: normal peripheral pulses, regular rate, rhythm, no edema, no gallop Peripheral Pulses: 2+: carotid (L), carotid (R), brachial (L), brachial (R), radial (L), radial (R), femoral (L), femoral (R), popliteal (L), popliteal (R), posterior tibial (L), posterior tibial (R), dorsalis pedis (L), dorsalis pedis ( R) GI/Abdominal: soft (Female) Exam: Deferred Rectal (Female) Exam: Deferred Back Exam: normal inspection Extremities: normal inspection, non-tender, no pedal edema, normal capillary refill Neurological: alert, oriented, CN II-XII intact, normal cognition, normal reflexes Psychiatric: normal affect, normal mood, other (Anxiety decreased 15 minutes after administration of Xanax 1 mg po.) Skin Exam: Warm, Dry, Intact ED RESPIRATORY PROCEDURES - Additional/Other Procedure(s) Other (Free Text) Procedure(s): CXR radiology without acute change from previous CXR. SVN treatment with albuterol and second with Pulmicort signifcant decrease in cough and dyspnea. O2 continuous 2 l/min via nasal cannula- HR 96- Resp rate 24 - O2 saturations 93% on O2 at 2L/min nasal cannula.CXR Course - Vital Signs Last Recorded V/S: Last Vital Signs Temp 37.2 C 02/11/17 03:45 Pulse 102 H 02/11/17 03:45 Resp 24 H 02/11/17 03:45 BP 164/76 H 02/11/17 03:45 Pulse Ox 91 L 02/11/17 03:45 - Orders/Labs/Meds Orders: Active Orders 24 hr Category Date Time Status Oxygen Therapy, ED [RC] ASDIRECTED Care 02/10/17 21:15 Active RT Aerosol Therapy [RC] ASDIRECTED Care 02/10/17 22:28 Active Chest 2V [CR] Stat Exams 02/10/17 22:05 Taken Albuterol/Ipratropium [DuoNeb 3.0-0.5 MG/3 ML] Med 02/11/17 04:35 Active 3 ml NEB Q4H PRN Azithromycin [Zithromax] 500 mg Med 02/10/17 22:15 Active Sodium Chloride 0.9% [Normal Saline] 250 ml IV Q24H NS + KCl 20mEq/L [Normal Saline with 20 mEq KCl] 1,000 Med 02/10/17 23:45 Active ml IV ASDIRECTED Medication Orders Albuterol/Ipratropium (Duoneb 3.0-0.5 Mg/3 Ml) 3 ml NEB Q4H PRN PRN Reason: Dyspnea Last Admin: 02/11/17 04:40 Dose: 3 ml Azithromycin 500 mg/ Sodium (Chloride) 250 mls @ 250 mls/hr IV Q24H SHAINA Last Admin: 02/10/17 22:21 Dose: 250 mls/hr Potassium Chloride/Sodium Chloride (Normal Saline With 20 Meq Kcl) 1,000 mls @ 100 mls/hr IV ASDIRECTED SHAINA Last Admin: 02/10/17 23:45 Dose: 100 mls/hr Labs: Laboratory Tests 02/10/17 02/10/17 Range/Units 22:04 22:04 WBC 6.7 (5.0-10.0) 10^3/uL RBC 2.95 L (4.00-5.50) 10^6/uL Hgb 10.2 L (12.0-16.0) g/dL Hct 32.6 L (37.0-47.0) % MCV 110.5 H (82.0-94.0) fL MCH 34.6 H (27.0-32.0) pg MCHC 31.3 L (33.0-38.0) g/dL RDW Coeff of Claude 15.9 H (11.0-15.0) % Plt Count 269 (150-400) 10^3/uL Neut % (Auto) 53.4 (35-85) % Lymph % (Auto) 30.0 (10-55) % [place] % (Auto) 14.0 (0-16) % Eos % (Auto) 2.5 (0-5) % Baso % (Auto) 0.1 (0-3) % Neut # (Auto) 3.57 (1.80-7.00) 10^3/uL Lymph # (Auto) 2.01 (1.00-4.80) 10^3/uL [place] # (Auto) 0.94 H (0.00-0.80) 10^3/uL Eos # (Auto) 0.17 (0.00-0.45) 10^3/uL Baso # (Auto) 0.01 10^3/uL Sodium 143 (136-145) mEq/L Potassium 3.3 L (3.5-5.0) mEq/L Chloride 104 (98-106) mEq/L Carbon Dioxide 27 (21-32) mmol/L BUN 17 (7-18) mg/dL Creatinine 1.0 (0.6-1.0) mg/dL Est Cr Clr Drug Dosing 40.21 mL/min Estimated GFR (MDRD) 54 L (>=60) mL/min Glucose 109 H (75-99) mg/dL Calcium 8.3 L (8.4-10.1) mg/dL Total Bilirubin 0.3 (0.0-1.0) mg/dL AST 25 (15-37) U/L ALT 15 (12-78) U/L Alkaline Phosphatase 77 (46-116) U/L C-Reactive Protein 2.7 H (0.2-0.8) mg/dL Total Protein 6.8 (6.4-8.2) g/dL Albumin 3.3 L (3.4-5.0) g/dL Meds: Medications Generic Name Dose Route Start Last Admin Trade Name Freq PRN Reason Stop Dose Admin Albuterol/Ipratropium 3 ml 02/11/17 04:35 02/11/17 04:40 Duoneb 3.0-0.5 Mg/3 Ml NEB 3 ml Q4H PRN Administration Dyspnea Azithromycin 500 mg/ Sodium 250 mls @ 250 mls/hr 02/10/17 22:15 02/10/17 22: 21 Chloride IV 250 mls/hr Q24H SHAINA Administration Potassium Chloride/Sodium Chloride 1,000 mls @ 100 mls/hr 02/10/17 23:45 01/24 23:45 Normal Saline With 20 Meq Kcl IV 100 mls/hr ASDIRECTED SHAINA Administration Discontinued Medications Generic Name Dose Route Start Last Admin Trade Name Freq PRN Reason Stop Dose Admin Albuterol 1.25 mg 02/10/17 21:15 02/10/17 22:29 Proventil Neb Soln NEB 02/10/17 21:16 1.25 mg ONETIME ONE Administration Albuterol 1.25 mg 02/10/17 21:20 02/10/17 22:30 Proventil Neb Soln NEB 02/10/17 21:21 1.25 mg ONETIME ONE Administration Alprazolam 1 mg 02/10/17 21:58 02/10/17 22:03 Xanax PO 02/10/17 21:59 1 mg ONETIME ONE Administration Budesonide 0.5 mg 02/10/17 21:46 02/10/17 21:49 Pulmicort NEB 02/10/17 21:47 0.5 mg ONETIME ONE Administration Sodium Chloride 1,000 mls @ 100 mls/hr 02/10/17 22:15 02/10/17 22:15 Normal Saline IV 100 mls/hr ASDIRECTED SHAINA Administration Potassium Chloride 20 meq/ 100 mls @ 25 mls/hr 02/10/17 22:43 02/10/17 23:46 Premix IV 02/11/17 02:42 Not Given ONETIME ONE - Re-Assessments/Exams Free Text/Narrative Re-Assessment/Exam: 02/10/17 22:29 Significant improvement in wheezing and respiratory distress post SVN treatment and antianxiety medications. IV fluid via hep lock. Free Text/Narrative Re-Assessment/Exam: 02/10/17 23:01 Patient placed in extended ER for close observation for the next 4-6 hours- IVF coninues 100 cc/hr- hypokalemia is noted therefore KCL 20 edson added to IV fluid. Stable and without respiratory distress-cough intermttently. She will continue with O2 @ 3 litres/min via nasal cannula. Encouraged po fluids and will reassess prior to discharge later this am. Patient and agree to plan. Departure - Departure Time of Disposition: 07:55 Disposition: Home, Self-Care 01 Condition: good Clinical Impression: Acute asthma, Acute dyspnea, Asthma attack, Anxiety Instructions: Asthma, Adult, Shortness of Breath, [id number] Referrals: Lopez Herring MD [Primary Care Provider] - Forms: ED Department Discharge MLP Sign Off - Signature Requirements MLP Sign Off: No - Problem List & Annotations (1) Asthma attack SNOMED Code(s): 583749082 Code(s): J45.901 - UNSPECIFIED ASTHMA WITH (ACUTE) EXACERBATION Status: Acute Priority: High Current Visit: Yes (2) Acute dyspnea SNOMED Code(s): 367655333 Code(s): R06.00 - DYSPNEA, UNSPECIFIED Status: Acute Priority: High Current Visit: Yes (3) Anxiety SNOMED Code(s): 02530030 Code(s): F41.9 - ANXIETY DISORDER, UNSPECIFIED Status: Chronic Current Visit: No Onset Date: 05/01/14 - My Orders Last 24 Hours: My Active Orders 02/10/17 21:15 Oxygen Therapy, ED [RC] ASDIRECTED 02/10/17 22:05 Chest 2V [CR] Stat 02/10/17 22:15 Azithromycin [Zithromax] 500 mg Sodium Chloride 0.9% [Normal Saline] 250 ml IV Q24H 02/10/17 22:28 RT Aerosol Therapy [RC] ASDIRECTED 02/10/17 23:45 NS + KCl 20mEq/L [Normal Saline with 20 mEq KCl] 1,000 ml IV ASDIRECTED 02/11/17 04:35 Albuterol/Ipratropium [DuoNeb 3.0-0.5 MG/3 ML] 3 ml NEB Q4H PRN - Assessment/Plan Last 24 Hours: My Active Orders 02/10/17 21:15 Oxygen Therapy, ED [RC] ASDIRECTED 02/10/17 22:05 Chest 2V [CR] Stat 02/10/17 22:15 Azithromycin [Zithromax] 500 mg Sodium Chloride 0.9% [Normal Saline] 250 ml IV Q24H 02/10/17 22:28 RT Aerosol Therapy [RC] ASDIRECTED 02/10/17 23:45 NS + KCl 20mEq/L [Normal Saline with 20 mEq KCl] 1,000 ml IV ASDIRECTED 02/11/17 04:35 Albuterol/Ipratropium [DuoNeb 3.0-0.5 MG/3 ML] 3 ml NEB Q4H PRN Assessment:: Exacerbation of asthma COPD O2 Dependan Anxiety Plan: Patient feelling much better this am. Will be discharged to home after breakfast. Advised F/U with PCP in 1 week or prn.
[2017-02-10] MEDS ORDERED: Azithromycin 500 MG in Sodium Chloride 0.9% 250 ML IV SCH (22:15)
[2017-02-10] MEDS ORDERED: Sodium Chloride 0.9% 1,000 ML IV SCH (22:15)
[2017-02-10] MEDS ORDERED: Potassium Chloride 20 MEQ in Premix Bag 1 BAG IV ONE (22:43)
[2017-02-10] MEDS ORDERED: NS + KCl 20mEq/L 1,000 ML IV SCH (23:45)
[2017-02-11] MEDS ORDERED: Albuterol/Ipratropium 3.0-0.5 MG/3 ML Neb Soln NEB PRN (04:35)
[2017-02-11 08:42] VITALS: BP 133/70
== END 2017-02-11 08:45 | disposition home or self-care (01) ==
LOC: CC.ED 21:32
DX: J45.909 Unspecified asthma, uncomplicated (principal); F41.9 Anxiety disorder, unspecified; E78.00 Pure hypercholesterolemia, unspecified; I10 Essential (primary) hypertension; I25.2 Old myocardial infarction; J44.9 Chronic obstructive pulmonary disease, unspecified; K21.9 Gastro-esophageal reflux disease without esophagitis; F32.9 Major depressive disorder, single episode, unspecified; E66.9 Obesity, unspecified; Z88.1 Allergy status to other antibiotic agents; Z88.6 Allergy status to analgesic agent; Z88.5 Allergy status to narcotic agent; Z88.8 Allergy status to other drugs, medicaments and biological substances; Z91.018 Allergy to other foods; Z79.899 Other long term (current) drug therapy; Z90.710 Acquired absence of both cervix and uterus; Z98.49 Cataract extraction status, unspecified eye; Z90.49 Acquired absence of other specified parts of digestive tract; Z87.891 Personal history of nicotine dependence
CPT/HCPCS: 36415; 71020; 80053; 85025; 86140; 96365; 96366; 96367; 99285; A9270; J0456; J3480; J7030; J7050; 96375

== ENCOUNTER 2017-02-12 18:46 | Inpatient (IN) | payer MEDICARE, MEDICAID ==
[2017-02-12 19:54] LABS: CHLORIDE,CL 106 mEq/L (98-106); SODIUM,NA 145 mEq/L (136-145)
[2017-02-12] MEDS ORDERED: Acetaminophen 325 MG Tab PO PRN (20:24)
[2017-02-12] MEDS: fentaNYL 100 MCG/2 ML SDV IVPUSH PRN (20:29)
[2017-02-12] MEDS ORDERED: Lactated Ringers 1,000 ML IV SCH (20:30)
[2017-02-12] MEDS: Ondansetron 4 MG/2 ML SDV IVPUSH PRN (20:32)
--- NOTE | 2017-02-12 20:33 | EDM.PDOC ---
ED HPI GENERAL MEDICAL PROBLEM - General Chief Complaint: General Stated Complaint: nausea,malaise,dyspnea Time Seen by Provider: 02/12/17 19:28 Source of Information: Reports: Patient History Limitations: Reports: No limitations - History of Present Illness INITIAL COMMENTS - FREE TEXT/NARRATIVE: Evette is a 76 yo female who resents to the ER, accompanied by , with initial complaints of shortness of breath. States she has pneumonia. She states on arrival she needs oxygen as she is oxygen dependant and ran out of her O2 tank on the way here. She states she was in the ER on Friday night and was in for an extended ER for IV fluids and sent home yesterday morning with an antibiotic ( Azithromycin). She states she felt as if she was getting pneumonia and was going to end up back here. Yesterday she states she was doing fine. Upon waking up this morning she started to feel sick after taking her antibiotic. Became nauseated and had one emesis. States she hasn't been able to drink much today and has a poor appetite. States she started to get a severe headache with it as well. States she hasn't taken anything for relief. Feels it is secondary to either the antibiotic or being dehydrated. States she is fairly positive it isn't caused by meningitis as she has had it before and is nothing like that. She states she has body aches all over presently. She has been able to cough up some thick phlegm as well. She thinks she has been running a fever all day and ended up taking some Tylenol this morning for a fever. Onset: gradual Duration: Getting worse Location: Reports: head, chest Associated Symptoms: Reports: cough, fever/chills, headaches, nausea/vomiting, shortness of breath. Denies: chest pain Treatments MATERIALS PLANNING MANAGER: Reports: Other (see below) Other Treatments MATERIALS PLANNING MANAGER: last took tylenol at 1100 Generalized Pain Score (Numeric/FACES): 10 - Related Data Allergies Allergy/AdvReac Type Severity Reaction Status Date / Time amoxicillin Allergy Itching Verified 02/12/17 18:55 aspirin Allergy Cannot Verified 02/12/17 18:55 Remember cephalexin monohydrate Allergy Dizziness Verified 02/12/17 18:55 [From Keflex] codeine Allergy Nausea Verified 02/12/17 18:55 gabapentin Allergy Cannot Verified 02/12/17 18:55 Remember kiwi Allergy Itching Verified 02/12/17 18:55 loratadine Allergy Headache Verified 02/12/17 18:55 montelukast sodium Allergy Nausea Verified 02/12/17 18:55 [From Singulair] morphine Allergy Nausea Verified 02/12/17 18:55 nitrofurantoin Allergy Diarrhea Verified 02/12/17 18:55 [From Macrobid] paroxetine HCl [From Paxil] Allergy Itching Verified 02/12/17 18:55 pregabalin [From Lyrica] Allergy Syncope Verified 02/12/17 18:55 procaine HCl [From Novocain] Allergy Rash Verified 02/12/17 18:55 promethazine [From Phenergan] Allergy Nervousness Verified 02/12/17 18:55 solumedrol Allergy Itching Uncoded 12/30/16 04:04 Home Meds: Home Meds ALPRAZolam [Alprazolam] 1 - 2 tab PO Q8H PRN 05/01/14 [History] Cyanocobalamin (Vitamin B12) [Vitamin B12] 1,000 mcg IM Q30D 05/01/14 [History] Esomeprazole Magnesium [Nexium] 40 mg PO ACBREAKFAST 05/01/14 [History] Furosemide 40 mg PO DAILY 05/01/14 [History] Hydrocodone/Acetaminophen [Hydrocodone-Acetaminophen 5-325] 1 tab PO Q6H PRN [History] Multivit-Min/FA/Lycopene/Lut [Centrum Silver] 1 tab PO DAILY 05/01/14 [History] Potassium Chloride [Klor-Con 10] 10 meq PO BID 05/01/14 [History] Roflumilast [Daliresp] 500 mcg PO DAILY 05/01/14 [History] Rosuvastatin [Crestor] 5 mg PO BEDTIME 05/01/14 [History] Sertraline [Zoloft] 150 mg PO BEDTIME 05/01/14 [History] Valsartan [Diovan] 160 mg PO DAILY 05/01/14 [History] Zolpidem [Ambien] 5 mg PO BEDTIME PRN 05/01/14 [History] Albuterol [Proair HFA] 2 puff INH Q4H PRN 04/28/15 [History] Ibuprofen 400 - 800 mg PO Q8H PRN 04/28/15 [History] Ranitidine [Zantac] 150 mg PO BEDTIME 09/18/15 [History] Albuterol [Proventil Neb Soln] 2.5 mg NEB Q4H PRN #180 ml 09/19/15 [Rx] Albuterol/Ipratropium [DuoNeb 3.0-0.5 MG/3 ML] 3 ml INH QID #360 ml 09/19/15 [Rx ] Carbidopa/Levodopa [Carbidopa-Levodopa 25-100] 1 tab PO TID PRN #0 tablet [Rx] Nystatin [Nystatin Crm] 1 applic TOP QID PRN 06/06/16 [History] Budesonide [Pulmicort] 0.5 mg NEB BIDRT 12/30/16 [History] Polyethylene Glycol 3350 [MiraLAX] 17 gm PO DAILY 12/30/16 [History] Mupirocin Cream [Bactroban Crm] 1 applic TOP TID PRN 02/10/17 [History] Clotrimazole/Betamethasone Dip [Lotrisone Cream] 15 gm TP ASDIRECTED PRN [History] Azithromycin [IJD: Azithromycin] 250 mg PO DAILY 02/12/17 [History] Past Medical History HEENT History: Reports: Cataract, Hard of hearing, Impaired vision Cardiovascular History: Reports: Aneurysm, High cholesterol, Hypertension, [place] Respiratory History: Reports: Asthma, COPD, SOB Gastrointestinal History: Reports: GERD Other Genitourinary History: HYSTERECTOMY Musculoskeletal History: Reports: Fibromyalgia Neurological History: Reports: Other (see below) Other Neuro History: meningitis Psychiatric History: Reports: Anxiety, Depression Endocrine/Metabolic History: Reports: Obesity/BMI 30+ Hematologic History: Reports: None Immunologic History: Reports: None Dermatologic History: Reports: None Other Dermatologic History: shingles - Infectious Disease History Infectious Disease History: Reports: None - Past Surgical History HEENT Surgical History: Reports: Cataract surgery Other Cardiovascular Surgeries/Procedures: heart cath in 1980 GI Surgical History: Reports: Appendectomy Neurological Surgical History: Reports: Other (see below) Other Neurological Surgeries/Procedures: spinal surgery Musculoskeletal Surgical History: Reports: Knee replacement Social & Family History - Family History Family Medical History: Noncontributory HEENT: Reports: None Cardiac: Reports: Hypertension Respiratory: Reports: Asthma, COPD Oncologic: Reports: Colon - Tobacco Use Smoking Status *Q: Never Smoker Years of Tobacco use: 20 Packs/Tins Daily: 3 Used Tobacco, but Quit: No Month Tobacco Last Used: 1965 Second Hand Smoke Exposure: No - Caffeine Use Caffeine Use: Reports: Coffee, Soda, Tea - Alcohol Use Days Per Week of Alcohol Use: 0 - Recreational Drug Use Recreational Drug Use: No Drug Use in Last 12 Months: No - Sexual History Sexual History: Reports: None - Living Situation & Occupation Living situation: Reports: , with spouse Occupation: retired ED ROS GENERAL - Review of Systems Review Of Systems: See Below Constitutional: Reports: fever, chills, weakness, decreased appetite HEENT: Reports: No symptoms Respiratory: Reports: Shortness of Breath, Wheezing, Cough, Sputum Cardiovascular: Reports: No symptoms. Denies: Chest pain, Edema GI/Abdominal: Reports: Decreased appetite, Nausea, Vomiting. Denies: Abdominal pain, Bloody stool, Constipation, Diarrhea : Reports: no symptoms Musculoskeletal: Reports: other (myalgias). Denies: neck pain Skin: Reports: no symptoms Neurological: Reports: Headache. Denies: Confusion, Dizziness Psychiatric: Reports: Anxiety ED EXAM, GENERAL - Physical Exam Exam: See Below Exam Limited By: No limitations General Appearance: alert, anxious, mild distress, moderate distress Ears: normal external exam, normal canal, hearing grossly normal, normal TMs Nose: normal inspection, normal mucosa, no blood Throat/Mouth: Normal inspection, Normal lips, Normal gums, Normal oropharynx, Normal voice, No airway compromise Head: atraumatic, normocephalic Neck: normal inspection, supple, non-tender Respiratory/Chest: decreased breath sounds, wheezing, prolonged expiration. No : retractions, splinting Cardiovascular: regular rate, rhythm, no edema GI/Abdominal: normal bowel sounds, soft, non tender, no organomegaly, no distention, no abnormal bruit Back Exam: normal inspection. No: paraspinal tenderness, vertebral tenderness Extremities: normal inspection, no pedal edema, normal capillary refill Neurological: alert, oriented, normal cognition, no motor/sensory deficits Psychiatric: anxious. No: depressed mood, flat affect Skin Exam: Warm, Dry, Intact, Normal color, No rash Course - Vital Signs Last Recorded V/S: Last Vital Signs Temp 100.8 F H 02/12/17 20:06 Pulse 119 H 02/12/17 20:06 Resp 24 H 02/12/17 20:06 BP 143/75 H 02/12/17 20:06 Pulse Ox 92 L 02/12/17 20:06 - Orders/Labs/Meds Orders: Active Orders 24 hr Category Date Time Status Oxygen Therapy, ED [RC] ASDIRECTED Care 02/12/17 18:47 Active CXR [Chest 2V] [CR] Stat Exams 02/12/17 19:16 Ordered Head wo Cont [CT] Stat Exams 02/12/17 19:35 Taken CULTURE BLOOD [BC] Stat Lab 02/12/17 19:35 Received CULTURE BLOOD [BC] Stat Lab 02/12/17 19:40 Received Acetaminophen [Tylenol] Med 02/12/17 20:24 Active 650 mg PO Q6H PRN Lactated Ringers @ 75 MLS/HR(1000ml) Med 02/12/17 20:30 Ordered Lactated Ringers [Ringers, Lactated] 1,000 ml IV ASDIRECTED Ondansetron [Zofran] Med 02/12/17 20:22 Active 4 mg IVPUSH Q6H PRN fentaNYL [Sublimaze] Med 02/12/17 20:22 Active 50 mcg IVPUSH Q6H PRN Blood Culture x2 Reflex Set [OM.PC] Stat Oth 02/12/17 19:17 Ordered Medication Orders Acetaminophen (Tylenol) 650 mg PO Q6H PRN PRN Reason: Fever Last Admin: 02/12/17 20:36 Dose: 650 mg Fentanyl (Sublimaze) 50 mcg IVPUSH Q6H PRN PRN Reason: Pain Last Admin: 02/12/17 20:29 Dose: 50 mcg Lactated Ringer's (Ringers, Lactated) 1,000 mls @ 75 mls/hr IV ASDIRECTED SHAINA Last Admin: 02/12/17 20:40 Dose: 75 mls/hr Ondansetron HCl (Zofran) 4 mg IVPUSH Q6H PRN PRN Reason: Nausea Last Admin: 02/12/17 20:32 Dose: 4 mg Labs: Laboratory Tests 02/12/17 02/12/17 Range/Units 19:35 19:35 WBC 12.8 H (5.0-10.0) 10^3/uL RBC 3.02 L (4.00-5.50) 10^6/uL Hgb 10.5 L (12.0-16.0) g/dL Hct 33.6 L (37.0-47.0) % MCV 111.3 H (82.0-94.0) fL MCH 34.8 H (27.0-32.0) pg MCHC 31.3 L (33.0-38.0) g/dL RDW Coeff of Claude 16.1 H (11.0-15.0) % Plt Count 267 (150-400) 10^3/uL Neut % (Auto) 80.9 (35-85) % Lymph % (Auto) 9.5 L (10-55) % Atlantic % (Auto) 8.1 (0-16) % Eos % (Auto) 1.4 (0-5) % Baso % (Auto) 0.1 (0-3) % Neut # (Auto) 10.33 H (1.80-7.00) 10^3/uL Lymph # (Auto) 1.21 (1.00-4.80) 10^3/uL Atlantic # (Auto) 1.03 H (0.00-0.80) 10^3/uL Eos # (Auto) 0.18 (0.00-0.45) 10^3/uL Baso # (Auto) 0.01 10^3/uL ESR 48 H (0-20) mm/hr Sodium 145 (136-145) mEq/L Potassium 3.9 (3.5-5.0) mEq/L Chloride 106 (98-106) mEq/L Carbon Dioxide 30 (21-32) mmol/L BUN 9 (7-18) mg/dL Creatinine 0.7 (0.6-1.0) mg/dL Est Cr Clr Drug Dosing 57.44 mL/min Estimated GFR (MDRD) > 60 (>=60) mL/min Glucose 139 H D (75-99) mg/dL Calcium 8.5 (8.4-10.1) mg/dL Total Bilirubin 0.4 (0.0-1.0) mg/dL AST 24 (15-37) U/L ALT 21 (12-78) U/L Alkaline Phosphatase 82 (46-116) U/L C-Reactive Protein 7.9 H (0.2-0.8) mg/dL Total Protein 7.0 (6.4-8.2) g/dL Albumin 3.3 L (3.4-5.0) g/dL Meds: Medications Generic Name Dose Route Start Last Admin Trade Name Freq PRN Reason Stop Dose Admin Acetaminophen 650 mg 02/12/17 20:24 02/12/17 20:36 Tylenol PO 650 mg Q6H PRN Administration Fever Fentanyl 50 mcg 02/12/17 20:22 02/12/17 20:29 Sublimaze IVPUSH 50 mcg Q6H PRN Administration Pain Lactated Ringer's 1,000 mls @ 75 mls/hr 02/12/17 20:30 02/12/17 20:40 Ringers, Lactated IV 75 mls/hr ASDIRECTED SHAINA Administration Ondansetron HCl 4 mg 02/12/17 20:22 02/12/17 20:32 Zofran IVPUSH 4 mg Q6H PRN Administration Nausea - Re-Assessments/Exams Free Text/Narrative Re-Assessment/Exam: 02/12/17 20:42 Headache improved prior to transfer to floor, Evette states she was feeling a lot better after receiving Fentanyl and Zofran. Oxygen saturation improved to 94 -96% on 4 Liters per nasal cannula. Will start IV fluids, broad-spectrum antibiotics, and oxygen therapy. Respiratory Therapy will be ordered for evaluation and treatment. 02/12/17 20:43 02/12/17 20:44 Departure - Departure Time of Disposition: 20:37 Disposition: Admitted As Inpatient 67 Condition: undetermined Clinical Impression: Pneumonia Forms: ED Department Discharge - Problem List & Annotations (1) Headache SNOMED Code(s): 54255394 Code(s): R51 - HEADACHE Status: Acute Current Visit: Yes Qualifiers: Headache type: unspecified Headache chronicity pattern: acute headache (2) Pneumonia SNOMED Code(s): 572506875 Code(s): J18.9 - PNEUMONIA, UNSPECIFIED ORGANISM Status: Acute Priority: High Current Visit: Yes Qualifiers: Pneumonia type: due to unspecified organism Laterality: right Lung location: unspecified part of lung Qualified Code(s): J18.9 - Pneumonia, unspecified organism - Problem List Review Problem List Initiated/Reviewed/Updated: Yes - My Orders Last 24 Hours: My Active Orders 02/12/17 18:47 Oxygen Therapy, ED [RC] ASDIRECTED 02/12/17 19:16 CXR [Chest 2V] [CR] Stat 02/12/17 19:17 Blood Culture x2 Reflex Set [OM.PC] Stat 02/12/17 19:35 Head wo Cont [CT] Stat CULTURE BLOOD [BC] Stat 02/12/17 19:40 CULTURE BLOOD [BC] Stat 02/12/17 20:22 Ondansetron [Zofran] 4 mg IVPUSH Q6H PRN fentaNYL [Sublimaze] 50 mcg IVPUSH Q6H PRN 02/12/17 20:24 Acetaminophen [Tylenol] 650 mg PO Q6H PRN 02/12/17 20:30 Lactated Ringers @ 75 MLS/HR(1000ml) Lactated Ringers [Ringers, Lactated] 1, 000 ml IV ASDIRECTED - Assessment/Plan Admission H&P: Please use this note as an admission H&P Last 24 Hours: My Active Orders 02/12/17 18:47 Oxygen Therapy, ED [RC] ASDIRECTED 02/12/17 19:16 CXR [Chest 2V] [CR] Stat 02/12/17 19:17 Blood Culture x2 Reflex Set [OM.PC] Stat 02/12/17 19:35 Head wo Cont [CT] Stat CULTURE BLOOD [BC] Stat 02/12/17 19:40 CULTURE BLOOD [BC] Stat 02/12/17 20:22 Ondansetron [Zofran] 4 mg IVPUSH Q6H PRN fentaNYL [Sublimaze] 50 mcg IVPUSH Q6H PRN 02/12/17 20:24 Acetaminophen [Tylenol] 650 mg PO Q6H PRN 02/12/17 20:30 Lactated Ringers @ 75 MLS/HR(1000ml) Lactated Ringers [Ringers, Lactated] 1, 000 ml IV ASDIRECTED Plan: Discussed radiology findings with [facility] radiologist. CT of the head was negative per radiologist at [facility], showing only chronic changes. Confirmed chest x-ray showed right upper and lower lobe infiltrates, consistent with pneumonia. Dr. Herring alerted in regards to Evette's condition and will admit to his services under acute care which he was in agreement. Blood cultures are pending. Will start IV Levaquin at this time. Transferred to floor in satisfactory condition.
[2017-02-12] MEDS ORDERED: Albuterol 8 GM Inhaler INH PRN (21:18)
[2017-02-12] MEDS ORDERED: Zolpidem 5 MG Tab PO PRN (21:18)
[2017-02-12] MEDS ORDERED: ALPRAZOLAM PO PRN (21:18)
[2017-02-12] MEDS ORDERED: IBUPROFEN PO PRN (21:18)
[2017-02-12] MEDS ORDERED: Albuterol 0.083% 2.5 MG/3 ML Neb Soln NEB PRN (21:18)
[2017-02-12] MEDS ORDERED: Levofloxacin/Dextrose 5%-Water 500 MG in Premix Bag 1 BAG IV SCH (21:30)
[2017-02-12] MEDS ORDERED: Enoxaparin 40 MG/0.4 ML Syringe SUBCUT SCH (21:30)
[2017-02-12] MEDS: Budesonide 0.5 MG/2 ML Neb Susp NEB SCH (21:44)
[2017-02-12] MEDS: Acetaminophen/HYDROcodone 325-5 MG Tab PO PRN (21:45)
[2017-02-12] MEDS: Carbidopa/Levodopa 25-100 MG Tab PO PRN (22:03)
[2017-02-12] MEDS ORDERED: ALPRAZolam 0.5 MG Tab.DIS (ODT) PO PRN (22:44)
[2017-02-12] MEDS ORDERED: Ibuprofen 200 MG Tab PO PRN (22:45)
[2017-02-13] MEDS: fentaNYL 100 MCG/2 ML SDV IVPUSH PRN ×2 (01:40→12:50)
[2017-02-13] MEDS: Ondansetron 4 MG/2 ML SDV IVPUSH PRN (04:46)
[2017-02-13] MEDS ORDERED: Pantoprazole 40 MG Tab.CR PO SCH (07:00)
[2017-02-13] MEDS: Carbidopa/Levodopa 25-100 MG Tab PO PRN (07:50)
[2017-02-13] MEDS: Acetaminophen/HYDROcodone 325-5 MG Tab PO PRN (07:50)
[2017-02-13] MEDS ORDERED: ALPRAZolam 0.25 MG Tab PO PRN (07:57)
[2017-02-13 08:00] LABS: CHLORIDE,CL 107 mEq/L (98-106); SODIUM,NA 145 mEq/L (136-145)
[2017-02-13] MEDS ORDERED: Polyethylene Glycol 3350 Powder 17 GM Packet PO SCH (08:00)
[2017-02-13] MEDS ORDERED: Losartan 100 MG Tab PO SCH (08:00)
[2017-02-13] MEDS ORDERED: Potassium Chloride 10 MEQ Tab.ER PO SCH (08:00)
[2017-02-13] MEDS ORDERED: methylPREDNISolone Sodium Succinate 125 MG/2 ML SDV IVPUSH SCH (08:00)
[2017-02-13] MEDS ORDERED: Furosemide 40 MG Tab PO SCH (08:00)
[2017-02-13] MEDS ORDERED: ROFLUMILAST 500 MCG PO SCH (08:00)
[2017-02-13] MEDS: Albuterol/Ipratropium 3.0-0.5 MG/3 ML Neb Soln INH SCH ×2 (08:45→13:10)
[2017-02-13] MEDS: Budesonide 0.5 MG/2 ML Neb Susp NEB SCH (09:26)
[2017-02-13] MEDS ORDERED: Lidocaine/Prilocaine 2.5-2.5% Crm 5 GM Tube TOP ONE (10:08)
[2017-02-13 11:18] LABS: O2 DELIVERY DEVICE NASAL CANNULA; O2 SATURATION ARTERIAL 87 % (95-98); PCO2 ARTERIAL 66 mm/Hg0 (35-45); PO2 ARTERIAL 61 mm/Hg (80-100)
[2017-02-13 11:19] LABS: BICARBONATE,ARTERIAL 31.5 mm/L (22.0-26.0); O2 FLOW RATE 5
[2017-02-13 12:12] VITALS: BP 109/60
[2017-02-13] MEDS ORDERED: Furosemide 40 MG/4 ML VIAL IVPUSH ONE ×2 (12:30→12:39)
--- NOTE | 2017-02-13 13:03 | PN ---
DATE: 02/13/2017 S: Evette was admitted last night for pneumonia. She has bibasilar pneumonia and COPD exacerbation. She is requiring now 6 L of O2 per nasal cannula. When I go in to see her today, she feels short of breath but better than last night. Her lab work is reviewed. She has been afebrile. Sputum and blood cultures are pending. O: GENERAL: She is pleasant and cooperative, is tachypneic but does not appear in overt distress. NECK: Her neck veins are flat. LUNGS: Her lung sounds are rhonchorous with inspiratory and expiratory wheezing throughout. Rales noted mostly in the right base. HEART: Cardiac tones are tachy. ABDOMEN: Soft. EXTREMITIES: She has no peripheral edema. ASSESSMENT: PNEUMONIA WITH CHRONIC OBSTRUCTIVE PULMONARY DISEASE EXACERBATION. P: I am going to put her on IV methylprednisolone 125 mg every 12 hours. Continue current pulmonary cares. RT will be evaluating and treating today. We will stop her IV fluids and turn her O2 down as she is a chronic COPD patient and CO2 retainer. We will turn her O2 down to 4 medially and try to wean her to keep her above 90%. AZALIA/VIDA /[id number]
--- NOTE | 2017-02-13 13:21 | DISCH ---
ADMISSION DIAGNOSIS: Chronic obstructive pulmonary disease exacerbation. DISCHARGE DIAGNOSIS: 1. CHRONIC OBSTRUCTIVE PULMONARY DISEASE EXACERBATION. 2. PNEUMONIA. 3. ELEVATED BNP. 4. RESPIRATORY DISTRESS WITH HYPERCAPNIA. HISTORY: The patient is a 76-year-old with known advanced COPD, sees Dr. Roberts for chronic pulmonary cares. She presented with increased shortness of breath, respiratory distress, and cough. She was evaluated by Hung Yanez in the emergency room. She had an elevated white count, elevated CRP, and a chest x- ray showed potential bibasilar infiltrate. She had no temp at the time of her admission. She was admitted and started on IV antibiotics and appropriate pulmonary cares. HOSPITAL COURSE: The patient, over the course of the last 12 hours, has shown some increased work of breathing and signs of distress. We are unable to get her O2 down under 5 to 6 L to keep her sats above 90%. Blood gas was obtained after I saw her on rounds, and she has a pH of 7.24 with a pCO2 of 66. She is starting to have some increased work of breathing. I reviewed her chest x-ray, looks like she may have a failure component, so I did order a BNP and it is up at 2000. I did stop her IV fluids that were ordered on admit, put her on IV Solu-Medrol, and I am going to order a dose of IV Lasix. Because the patient is a code level 1 and desires aggressive measures, I am concerned about impending respiratory failure and the possible need for intubation. I was able to get a hold of Dr. Cosme, on-call hospitalist at [facility], who agrees to accept her on transfer. She will go with [facility] ground ambulance. Fluids have been stopped. She has gotten IV Levaquin, IV Solu-Medrol, and continues on nebulizers. She will get a dose of IV Lasix prior to her departure, and we will put a [place] cath in place for the trip. COMPLICATIONS: Complications during her stay were none. CONSULTATIONS: Dr. Cosme via telephone for transfer. DISPOSITION: ALS ground transfer to [facility], care of Dr. Cosme. KELSEYP/JUAN FRANCISCOL /[id number]
[2017-02-13] MEDS ORDERED: Sertraline 100 MG Tab PO SCH (20:00)
[2017-02-13] MEDS ORDERED: Enoxaparin 40 MG/0.4 ML Syringe SUBCUT SCH (20:00)
[2017-02-13] MEDS ORDERED: Famotidine 20 MG Tab PO SCH (20:00)
[2017-02-13] MEDS ORDERED: Levofloxacin/Dextrose 5%-Water 500 MG in Premix Bag 1 BAG IV SCH (20:00)
== END 2017-02-13 13:55 | DRG 190 ==
LOC: CC.ED 18:46 → CC.MS 20:46 → UNDOADMIN 20:50
PROVIDERS: ADMIT Physician Assistant Medical; ATTEND Family Medicine
DX: J44.0 Chronic obstructive pulmonary disease with (acute) lower respiratory infection (principal); J18.9 Pneumonia, unspecified organism; J44.1 Chronic obstructive pulmonary disease with (acute) exacerbation; J45.909 Unspecified asthma, uncomplicated; R06.00 Dyspnea, unspecified; R51 Headache; Z99.81 Dependence on supplemental oxygen; R79.89 Other specified abnormal findings of blood chemistry; H91.90 Unspecified hearing loss, unspecified ear; Z88.8 Allergy status to other drugs, medicaments and biological substances; Z88.6 Allergy status to analgesic agent; Z88.1 Allergy status to other antibiotic agents; Z91.018 Allergy to other foods; Z79.899 Other long term (current) drug therapy; E78.00 Pure hypercholesterolemia, unspecified; I25.2 Old myocardial infarction; I10 Essential (primary) hypertension; K21.9 Gastro-esophageal reflux disease without esophagitis; M79.7 Fibromyalgia; F32.9 Major depressive disorder, single episode, unspecified; F41.9 Anxiety disorder, unspecified; E66.9 Obesity, unspecified; Z68.30 Body mass index [BMI] 30.0-30.9, adult; Z96.659 Presence of unspecified artificial knee joint; Z87.891 Personal history of nicotine dependence
CPT/HCPCS: 36415; 70450; 71020; 80053; 85025; 85651; 86140; 87040 ×2; 87804 ×2; 96374; 96375; 99285; A9270; J2405; J3010; J7120; 36600; 51702; 80048; 81001; 82803; 83880; 94640; 94640-76; J1650; J1940; J1956; J2930; J7620-GY

== ENCOUNTER 2017-08-02 19:37 | Emergency (ER) | payer MEDICARE, MEDICAID ==
[2017-08-02 20:01] VITALS: BP 142/86
--- NOTE | 2017-08-02 20:26 | EDM.PDOC ---
ED HPI GENERAL MEDICAL PROBLEM - General Chief Complaint: Upper Extremity Injury/Pain Stated Complaint: Hand pain S/P hyper extention Right Time Seen by Provider: 08/02/17 20:21 Source of Information: Reports: Patient History Limitations: Reports: No Limitations - History of Present Illness INITIAL COMMENTS - FREE TEXT/NARRATIVE: Patient was getting apple pie out of oven and slipped under door of oven and caught herself with right hand and hyper extended her fingers 2nd 3rd and 4th. Pain is located in the 1st DIP joint region with minimal swelling. Pain at this time 6. 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 Relieved with immobility. Does take hydrocodone pain routinely medication chronic pain-fibromyalgia and RA. Onset: Today Onset Date: 08/02/17 Onset Time: 18:30 Duration: Hour(s):, Constant Location: Reports: Upper Extremity, Right Quality: Reports: Ache, Burning, Throbbing Severity: Moderate Improves with: Reports: Immobilization Worsens with: Reports: Movement Context: Reports: Trauma Associated Symptoms: Reports: No Other Symptoms Treatments SOUS CHEF: Reports: NSAIDS Right Hand Pain Score (Numeric/FACES): 6 - Related Data Allergies Allergy/AdvReac Type Severity Reaction Status Date / Time amoxicillin Allergy Itching Verified 08/02/17 19:56 aspirin Allergy Cannot Verified 08/02/17 19:56 Remember cephalexin monohydrate Allergy Dizziness Verified 08/02/17 19:56 [From Keflex] codeine Allergy Nausea Verified 08/02/17 19:56 gabapentin Allergy Cannot Verified 08/02/17 19:56 Remember kiwi Allergy Itching Verified 08/02/17 19:56 loratadine Allergy Headache Verified 08/02/17 19:56 montelukast sodium Allergy Nausea Verified 08/02/17 19:56 [From Singulair] morphine Allergy Nausea Verified 08/02/17 19:56 nitrofurantoin Allergy Diarrhea Verified 08/02/17 19:56 [From Macrobid] paroxetine HCl [From Paxil] Allergy Itching Verified 08/02/17 19:56 pregabalin [From Lyrica] Allergy Syncope Verified 08/02/17 19:56 procaine HCl [From Novocain] Allergy Rash Verified 08/02/17 19:56 promethazine [From Phenergan] Allergy Nervousness Verified 08/02/17 19:56 solumedrol Allergy Itching Uncoded 08/02/17 19:56 Home Meds: Home Meds ALPRAZolam [Alprazolam] 1 - 2 tab PO Q8H PRN 05/01/14 [History] Cyanocobalamin (Vitamin B12) [Vitamin B12] 1,000 mcg IM Q30D 05/01/14 [History] Esomeprazole Magnesium [Nexium] 40 mg PO ACBREAKFAST 05/01/14 [History] Furosemide 40 mg PO DAILY 05/01/14 [History] Hydrocodone/Acetaminophen [Hydrocodone-Acetaminophen 5-325] 1 tab PO Q6H PRN [History] Multivit-Min/FA/Lycopene/Lut [Centrum Silver] 1 tab PO DAILY 05/01/14 [History] Potassium Chloride [Klor-Con 10] 10 meq PO BID 05/01/14 [History] Roflumilast [Daliresp] 500 mcg PO DAILY 05/01/14 [History] Rosuvastatin [Crestor] 5 mg PO BEDTIME 05/01/14 [History] Sertraline [Zoloft] 150 mg PO BEDTIME 05/01/14 [History] Valsartan [Diovan] 160 mg PO DAILY 05/01/14 [History] Zolpidem [Ambien] 5 mg PO BEDTIME PRN 05/01/14 [History] Albuterol [Proair HFA] 2 puff INH Q4H PRN 04/28/15 [History] Ibuprofen 400 - 800 mg PO Q8H PRN 04/28/15 [History] Ranitidine [Zantac] 150 mg PO BEDTIME 09/18/15 [History] Albuterol [Proventil Neb Soln] 2.5 mg NEB Q4H PRN #180 ml 09/19/15 [Rx] Albuterol/Ipratropium [DuoNeb 3.0-0.5 MG/3 ML] 3 ml INH QID #360 ml 09/19/15 [Rx ] Carbidopa/Levodopa [Carbidopa-Levodopa 25-100] 1 tab PO TID PRN #0 tablet [Rx] Nystatin [Nystatin Crm] 1 applic TOP QID PRN 06/06/16 [History] Budesonide [Pulmicort] 0.5 mg NEB BIDRT 12/30/16 [History] Polyethylene Glycol 3350 [MiraLAX] 17 gm PO DAILY 12/30/16 [History] Mupirocin Cream [Bactroban Crm] 1 applic TOP TID PRN 02/10/17 [History] Clotrimazole/Betamethasone Dip [Lotrisone Cream] 15 gm TP ASDIRECTED PRN [History] Azithromycin [IJD: Azithromycin] 250 mg PO DAILY 02/12/17 [History] Past Medical History HEENT History: Reports: Cataract, Hard of Hearing, Impaired Vision Cardiovascular History: Reports: Aneurysm, High Cholesterol, Hypertension, MD Respiratory History: Reports: Asthma, COPD, SOB Gastrointestinal History: Reports: GERD Other Genitourinary History: HYSTERECTOMY Musculoskeletal History: Reports: Fibromyalgia Neurological History: Reports: Other (See Below) Other Neuro History: meningitis Psychiatric History: Reports: Anxiety, Depression Endocrine/Metabolic History: Reports: Obesity/BMI 30+ Hematologic History: Reports: None Immunologic History: Reports: None Dermatologic History: Reports: None Other Dermatologic History: shingles - Infectious Disease History Infectious Disease History: Reports: None - Past Surgical History HEENT Surgical History: Reports: Cataract Surgery GI Surgical History: Reports: Appendectomy Neurological Surgical History: Reports: Other (See Below) Musculoskeletal Surgical History: Reports: Knee Replacement Social & Family History - Family History Family Medical History: Noncontributory HEENT: Reports: None Cardiac: Reports: Hypertension Respiratory: Reports: Asthma, COPD Oncologic: Reports: Colon - Tobacco Use Smoking Status *Q: Unknown Ever Smoked Years of Tobacco use: 20 Packs/Tins Daily: 3 Used Tobacco, but Quit: No Month Tobacco Last Used: 1965 Second Hand Smoke Exposure: No - Caffeine Use Caffeine Use: Reports: Coffee, Tea - Alcohol Use Days Per Week of Alcohol Use: 0 - Recreational Drug Use Recreational Drug Use: No Drug Use in Last 12 Months: No - Sexual History Sexual History: Reports: None - Living Situation & Occupation Living situation: Reports: , with Spouse Occupation: Retired Review of Systems - Review of Systems Review Of Systems: See Below Constitutional: Reports: No Symptoms Eyes: Reports: No Symptoms Ears: Reports: No Symptoms Nose: Reports: No Symptoms Mouth/Throat: Reports: No Symptoms Respiratory: Reports: No Symptoms Cardiovascular: Reports: No Symptoms GI/Abdominal: Reports: No Symptoms Genitourinary: Reports: No Symptoms Musculoskeletal: Reports: Hand Pain Skin: Reports: No Symptoms Neurological: Reports: Pre-Existing Deficit, Tingling, Other (RLS). Denies: Confusion, Dizziness Psychiatric: Reports: Anxiety ED EXAM, GENERAL - Physical Exam Exam: See Below Exam Limited By: No Limitations General Appearance: Alert, WD/WN, Anxious, Mild Distress Eye Exam: Bilateral Eye: EOMI, Normal Fundi, Normal Inspection, PERRL Ears: Normal External Exam Ear Exam: Bilateral Ear: Auricle Normal, Canal Normal Nose: Normal Inspection, Normal Mucosa Throat/Mouth: Normal Inspection, Normal Lips, Normal Teeth, Normal Oropharynx, Normal Voice, No Airway Compromise Head: Atraumatic, Normocephalic, Other (Small bump on head no LOC) Neck: Normal Inspection, Supple, Non-Tender, Full Range of Motion Respiratory/Chest: Lungs Clear, Normal Breath Sounds, No Accessory Muscle Use, Chest Non-Tender, Other (O2 dependant 2/Lmin nasal cannula) Cardiovascular: Normal Peripheral Pulses, Regular Rate, Rhythm, No Edema, No Gallop Peripheral Pulses: 2+: Radial (L), Radial (R), Dorsalis Pedis (L), Dorsalis Pedis (R) GI/Abdominal: Soft, Non-Tender (Female) Exam: Deferred Rectal (Female) Exam: Deferred Back Exam: Normal Inspection, Full Range of Motion Extremities: Limited Range of Motion, Other (Right hand and finger stiffness) Neurological: Alert, Oriented, CN II-XII Intact, Normal Cognition, Other (RLS with continuous jerking which is normal for her. Worse at night) Psychiatric: Normal Affect Skin Exam: Warm, Dry, Intact, Ecchymosis, Erythema Course - Vital Signs Last Recorded V/S: Last Vital Signs Temp 37.1 C 08/02/17 19:57 Pulse 87 08/02/17 19:57 Resp 20 08/02/17 19:57 BP 142/86 H 08/02/17 19:57 Pulse Ox 93 L 08/02/17 19:57 - Orders/Labs/Meds Orders: Active Orders 24 hr Category Date Time Status Hand Comp Min 3V Rt [CR] Stat Exams 08/02/17 20:15 Taken Meds: Medications Discontinued Medications Generic Name Dose Route Start Last Admin Trade Name Freq PRN Reason Stop Dose Admin Alprazolam 0.5 mg 08/02/17 20:47 08/02/17 20:58 Alprazolam Odt PO 08/02/17 20:48 0.5 mg ONETIME ONE Administration Alprazolam Confirm 08/02/17 21:08 08/02/17 20:57 Xanax Administered 08/02/17 21:09 Not Given Dose 0.5 mg .ROUTE .STK-MED ONE Carbidopa/Levodopa 1 tab 08/02/17 20:46 08/02/17 20:57 Sinemet 25-100 Mg PO 08/02/17 20:47 1 tab ONETIME ONE Administration Departure - Departure Time of Disposition: 21:27 Disposition: Home, Self-Care 01 Condition: Good Clinical Impression: Hand pain, right, Arthritis, Arthritis, Anxiety - Discharge Information Forms: ED Department Discharge Additional Instructions: No fracture identified therefore will advise: Rest, Ice,Elevation and prevent further injury to the area. Take medications as previously prescribed. Follow up with PCP prn. F/U in ER if increased pain discomfort or immobility. Take home sheets reviewed and discharged stable condition. MLP Sign Off - Signature Requirements MLP Sign Off: No - Problem List & Annotations (1) Hand pain, right SNOMED Code(s): 40449892 Code(s): M79.641 - PAIN IN RIGHT HAND Status: Acute Current Visit: Yes - My Orders Last 24 Hours: My Active Orders 08/02/17 20:15 Hand Comp Min 3V Rt [CR] Stat - Assessment/Plan Last 24 Hours: My Active Orders 08/02/17 20:15 Hand Comp Min 3V Rt [CR] Stat Assessment:: Right hand/ finger strain hyper extension S/P fall GLF Anxiety RLS Plan: No fracture identified therefore will advise: Rest, Ice,Elevation and prevent further injury to the area. Take medications as previously prescribed. Follow up with PCP prn. F/U in ER if increased pain discomfort or immobility. Take home sheets reviewed and discharged stable condition.
[2017-08-02] MEDS ORDERED: Carbidopa/Levodopa 25-100 MG Tab PO ONE (20:46)
[2017-08-02] MEDS ORDERED: ALPRAZolam 0.5 MG Tab.DIS (ODT) PO ONE (20:47)
[2017-08-02] MEDS ORDERED: ALPRAZolam 0.25 MG Tab ONE (21:08)
== END 2017-08-02 21:40 | disposition home or self-care (01) ==
LOC: CC.ED 19:37
DX: S56.311A Strain of extensor or abductor muscles, fascia and tendons of right thumb at forearm level, initial encounter (principal); S00.83XA Contusion of other part of head, initial encounter; M19.041 Primary osteoarthritis, right hand; E78.00 Pure hypercholesterolemia, unspecified; F41.9 Anxiety disorder, unspecified; I10 Essential (primary) hypertension; I25.2 Old myocardial infarction; J45.909 Unspecified asthma, uncomplicated; F32.9 Major depressive disorder, single episode, unspecified; J44.9 Chronic obstructive pulmonary disease, unspecified; K21.9 Gastro-esophageal reflux disease without esophagitis; E66.9 Obesity, unspecified; Z79.899 Other long term (current) drug therapy; Z88.8 Allergy status to other drugs, medicaments and biological substances; Z88.1 Allergy status to other antibiotic agents; Z88.5 Allergy status to narcotic agent; Z90.89 Acquired absence of other organs; Z68.29 Body mass index [BMI] 29.0-29.9, adult; W01.0XXA Fall on same level from slipping, tripping and stumbling without subsequent striking against object, initial encounter
CPT/HCPCS: 73130; 99283; A9270

== ENCOUNTER 2017-11-25 12:32 | Inpatient (IN) | payer MEDICARE, MEDICAID ==
[2017-11-25] MEDS ORDERED: Ondansetron 4 MG/2 ML SDV IV PRN (12:47)
[2017-11-25] MEDS ORDERED: Sodium Chloride 0.9% 10 ML Syringe FLUSH PRN (12:47)
[2017-11-25 13:40] LABS: CHLORIDE,CL 107 mEq/L (98-106); SODIUM,NA 145 mEq/L (136-145)
[2017-11-25] MEDS ORDERED: Fluticasone Propionate Nasal Spray 16 GM Bottle NAS PRN (16:03)
[2017-11-25] MEDS ORDERED: Albuterol 8 GM Inhaler INH PRN (16:03)
[2017-11-25] MEDS ORDERED: Albuterol 0.083% 2.5 MG/3 ML Neb Soln NEB PRN (16:03)
[2017-11-25] MEDS ORDERED: Furosemide 40 MG/4 ML VIAL IVPUSH ONE (16:05)
[2017-11-25] MEDS: LEVODOPA PO PRN ×2 (16:31→21:42)
[2017-11-25] MEDS: CARBIDOPA PO PRN ×2 (16:31→21:42)
[2017-11-25] MEDS ORDERED: Levofloxacin/Dextrose 5%-Water 500 MG in Premix Bag 1 BAG IV SCH (17:00)
[2017-11-25] MEDS: Enoxaparin 30 MG/0.3 ML Syringe SUBCUT SCH (17:13)
[2017-11-25] MEDS: methylPREDNISolone Sodium Succinate 125 MG/2 ML SDV IVPUSH SCH (17:15)
[2017-11-25] MEDS: Albuterol 0.083% 2.5 MG/3 ML Neb Soln NEB PRN (17:54)
[2017-11-25] MEDS: Potassium Chloride 10 MEQ Tab.ER PO SCH (19:30)
[2017-11-25] MEDS: Budesonide 0.5 MG/2 ML Neb Susp NEB SCH (19:31)
[2017-11-25] MEDS: Sertraline 100 MG Tab PO SCH (19:34)
[2017-11-25] MEDS: Albuterol/Ipratropium 3.0-0.5 MG/3 ML Neb Soln INH SCH (19:36)
[2017-11-25] MEDS: Zolpidem 5 MG Tab PO PRN (19:45)
[2017-11-25] MEDS ORDERED: ROSUVASTATIN 5 MG PO SCH (20:00)
[2017-11-26] MEDS: methylPREDNISolone Sodium Succinate 125 MG/2 ML SDV IVPUSH SCH ×2 (03:37→16:08)
[2017-11-26] MEDS: CARBIDOPA PO PRN (03:38)
[2017-11-26] MEDS: LEVODOPA PO PRN (03:38)
[2017-11-26] MEDS ORDERED: ESOMEPRAZOLE MAGNESIUM 40 MG PO SCH (07:00)
[2017-11-26] MEDS ORDERED: VALSARTAN 160 MG PO SCH (08:00)
[2017-11-26] MEDS: Polyethylene Glycol 3350 Powder 17 GM Packet PO SCH (08:09)
[2017-11-26] MEDS: Potassium Chloride 10 MEQ Tab.ER PO SCH ×2 (08:10→19:49)
[2017-11-26] MEDS: Albuterol/Ipratropium 3.0-0.5 MG/3 ML Neb Soln INH SCH ×4 (08:10→19:48)
[2017-11-26] MEDS: Budesonide 0.5 MG/2 ML Neb Susp NEB SCH ×2 (08:10→19:49)
[2017-11-26] MEDS: ROFLUMILAST 500 MCG PO SCH (08:15)
[2017-11-26] MEDS: Acetaminophen 325 MG Tab PO PRN (10:33)
[2017-11-26] MEDS: Furosemide 40 MG Tab PO SCH (11:00)
[2017-11-26] MEDS: Enoxaparin 30 MG/0.3 ML Syringe SUBCUT SCH (13:06)
--- NOTE | 2017-11-26 14:22 | PCM.PN ---
- General Info Date of Service: 11/26/17 Admission Dx/Problem (Free Text): COPD Exacerbation Functional Status: Reports: Pain Controlled, Tolerating Diet. Denies: Ambulating - Review of Systems General: Reports: Weakness, Fatigue. Denies: Fever HEENT: Reports: Rhinitis Pulmonary: Reports: Shortness of Breath, Cough, Wheezing Cardiovascular: Denies: Chest Pain, Edema, Lightheadedness Gastrointestinal: Denies: Abdominal Pain, Nausea, Vomiting Genitourinary: Reports: No Symptoms Musculoskeletal: Reports: No Symptoms Skin: Reports: No Symptoms Neurological: Reports: No Symptoms Psychiatric: Reports: Anxiety - Patient Data Vitals - Most Recent: Last Vital Signs Temp 98.3 F 11/26/17 12:00 Pulse 84 11/26/17 12:00 Resp 24 H 11/26/17 12:00 BP 130/60 11/26/17 12:00 Pulse Ox 97 11/26/17 12:00 Weight - Most Recent: 171 lb 4.787 oz Med Orders - Current: Current Medications Acetaminophen (Tylenol) 650 mg PO Q4H PRN PRN Reason: Pain (Mild 1-3)/fever Last Admin: 11/26/17 10:33 Dose: 650 mg Albuterol (Proventil Neb Soln) 2.5 mg NEB Q2H PRN PRN Reason: Shortness Of Breath/wheezing Last Admin: 11/25/17 17:54 Dose: 2.5 mg Albuterol (Ventolin Hfa) 0 gm INH Q4H PRN PRN Reason: Shortness of Breath Albuterol (Proventil Neb Soln) 2.5 mg NEB Q4H PRN PRN Reason: Shortness of Breath Albuterol/Ipratropium (Duoneb 3.0-0.5 Mg/3 Ml) 3 ml INH QID [facility] Last Admin: 11/26/17 13:07 Dose: 3 ml Budesonide (Pulmicort) 0.5 mg NEB BIDRT [facility] Last Admin: 11/26/17 08:10 Dose: 0.5 mg Carbidopa/Levodopa (Sinemet 25-100 Mg) 1 tab PO QID PRN PRN Reason: RESTLESS LEGS Enoxaparin Sodium (Lovenox) 30 mg SUBCUT Q24H [facility] Last Admin: 11/26/17 13:06 Dose: 30 mg Furosemide (Lasix) 40 mg PO DAILY [facility] Last Admin: 11/26/17 11:00 Dose: 40 mg Levofloxacin/Dextrose 500 mg/ (Premix) 100 mls @ 100 mls/hr IV Q24H [facility] Last Admin: 11/25/17 17:20 Dose: 100 mls/hr Methylprednisolone Sodium Succinate (Solu-Medrol) 62.5 mg IVPUSH Q12H [facility] Last Admin: 11/26/17 03:37 Dose: 62.5 mg Ptom - Esomeprazole Magnesium [Nexium] 40 Mg 40 mg PO ACBREAKFAST [facility] Last Admin: 11/26/17 07:04 Dose: 40 mg Non-Formulary Medication (Mometasone Furoate) 2 sprays KELLI DAILY PRN PRN Reason: Other Non-Formulary Medication (Pramipexole Di-Hcl [Mirapex]) 0.125 mg PO BEDTIME [facility] Ptom - Roflumilast [ (Daliresp] 500 Mcg) 500 mcg PO DAILY [facility] Last Admin: 11/26/17 08:15 Dose: 500 mcg Ptom - Rosuvastatin ([Crestor] 5 Mg) 5 mg PO BEDTIME [facility] Last Admin: 11/25/17 19:34 Dose: 5 mg Ptom - Valsartan [ (Diovan] 160 Mg) 160 mg PO DAILY [facility] Last Admin: 11/26/17 08:15 Dose: 160 mg Ondansetron HCl (Zofran) 4 mg IV Q4H PRN PRN Reason: Nausea/Vomiting Last Admin: 11/26/17 10:36 Dose: 4 mg Polyethylene Glycol (Miralax) 17 gm PO DAILY [facility] Last Admin: 11/26/17 08:09 Dose: 17 gm Potassium Chloride (Klor-Con 10) 10 meq PO BID [facility] Last Admin: 11/26/17 08:10 Dose: 10 meq Sertraline HCl (Zoloft) 150 mg PO BEDTIME [facility] Last Admin: 11/25/17 19:34 Dose: 150 mg Sodium Chloride (Saline Flush) 10 ml FLUSH ASDIRECTED PRN PRN Reason: Keep Vein Open Zolpidem Tartrate (Ambien) 5 mg PO BEDTIME PRN PRN Reason: Insomnia Last Admin: 11/25/17 19:45 Dose: 5 mg Discontinued Medications Carbidopa/Levodopa (Sinemet 25-100 Mg) 1 tab PO TID PRN PRN Reason: RESTLESS LEGS Last Admin: 11/26/17 03:38 Dose: 1 tab Furosemide (Lasix) 40 mg IVPUSH ONETIME ONE Stop: 11/25/17 16:06 Last Admin: 11/25/17 17:13 Dose: 40 mg - Exam Quality Assessment: Supplemental Oxygen General: Alert, Oriented HEENT: Mucous Membr. Moist/[place] Neck: Supple Lungs: Decreased Breath Sounds, Crackles Cardiovascular: Regular Rate, Regular Rhythm GI/Abdominal Exam: Normal Bowel Sounds, Soft, Non-Tender Extremities: Normal Inspection, No Pedal Edema Skin: Warm, Dry Neurological: No New Focal Deficit Psy/Mental Status: Other (tearful) - Problem List & Annotations (1) COPD exacerbation SNOMED Code(s): 168267687992386 Code(s): J44.1 - CHRONIC OBSTRUCTIVE PULMONARY DISEASE W (ACUTE) EXACERBATION Status: Acute Priority: High Current Visit: Yes - Problem List Review Problem List Initiated/Reviewed/Updated: Yes - My Orders Last 24 Hours: My Active Orders 11/26/17 09:12 Carbidopa/Levodopa [Sinemet 25-100 mg] 1 tab PO QID PRN 11/26/17 11:00 Furosemide [Lasix] 40 mg PO DAILY - Assessment Assessment:: COPD Exacerbation - Plan Plan:: Patient very tearful today. States is worried about future plans of how to care for herself and . Believes her health is a huge concern and that she feels unable to care for him. He has had recent surgery and has limited movement of her arms and patient herself has been assisting him but with her breathing concerns, is now having more issues herself. Admits to activity intolerance, gets more short of breath with minimal activity now. Chest feels more tight. Is coughing up clear sputum. Aware to collect a sputum specimen if able. Afebrile. Oxygen sats 92-93% on 2 liters. Patient had been taken off her Lasix 2 weeks ago and was concern of CHF then on admit but ProBNP is normal Will continue with IV Levaquin and Solu Medrol. Restart her Lasix daily. Transfer to acute status. Social service consult in regards to her and her 's living arrangements and ability to return home safely.
[2017-11-26] MEDS: Levofloxacin/Dextrose 5%-Water 500 MG in Premix Bag 1 BAG IV SCH (16:11)
[2017-11-26] MEDS: Acetaminophen/HYDROcodone 325-5 MG Tab PO PRN (16:51)
[2017-11-26] MEDS: Sertraline 100 MG Tab PO SCH (19:49)
[2017-11-26] MEDS: Simvastatin 20 MG Tab PO SCH (19:49)
[2017-11-26] MEDS: Carbidopa/Levodopa 25-100 MG Tab PO PRN (19:51)
[2017-11-26] MEDS: Zolpidem 5 MG Tab PO PRN (21:26)
[2017-11-27] MEDS: Carbidopa/Levodopa 25-100 MG Tab PO PRN ×3 (01:30→23:41)
[2017-11-27] MEDS: methylPREDNISolone Sodium Succinate 125 MG/2 ML SDV IVPUSH SCH ×2 (04:44→16:04)
[2017-11-27] MEDS ORDERED: methylPREDNISolone Sodium Succinate 125 MG/2 ML SDV ONE (04:57)
[2017-11-27] MEDS: Acetaminophen/HYDROcodone 325-5 MG Tab PO PRN ×2 (05:01→16:03)
[2017-11-27] MEDS: Pantoprazole 40 MG Tab.CR PO SCH (06:38)
[2017-11-27] MEDS: Albuterol 0.083% 2.5 MG/3 ML Neb Soln NEB PRN (06:59)
[2017-11-27 07:24] LABS: CHLORIDE,CL 105 mEq/L (98-106); SODIUM,NA 141 mEq/L (136-145)
[2017-11-27] MEDS: Polyethylene Glycol 3350 Powder 17 GM Packet PO SCH (08:09)
[2017-11-27] MEDS: Losartan 100 MG Tab PO SCH (08:09)
[2017-11-27] MEDS: Potassium Chloride 10 MEQ Tab.ER PO SCH ×2 (08:09→19:35)
[2017-11-27] MEDS: Furosemide 40 MG Tab PO SCH (08:10)
[2017-11-27] MEDS: ROFLUMILAST 500 MCG PO SCH (08:12)
--- NOTE | 2017-11-27 08:51 | PCM.PN ---
- General Info Date of Service: 11/27/17 Admission Dx/Problem (Free Text): COPD Exacerbation Functional Status: Reports: Pain Controlled, Tolerating Diet, Ambulating - Review of Systems General: Reports: Weakness. Denies: Fever, Fatigue HEENT: Reports: Rhinitis. Denies: Headaches, Sore Throat Pulmonary: Reports: Shortness of Breath, Cough. Denies: Wheezing Cardiovascular: Denies: Chest Pain, Edema, Lightheadedness Gastrointestinal: Denies: Abdominal Pain, Nausea, Vomiting Genitourinary: Reports: No Symptoms Musculoskeletal: Reports: No Symptoms Skin: Reports: No Symptoms Neurological: Reports: No Symptoms Psychiatric: Reports: No Symptoms - Patient Data Vitals - Most Recent: Last Vital Signs Temp 98.5 F 11/27/17 07:58 Pulse 89 11/27/17 07:58 Resp 20 11/27/17 07:58 BP 133/69 11/27/17 08:09 Pulse Ox 97 11/27/17 07:58 Weight - Most Recent: 171 lb 4.787 oz Lab Results Last 24 Hours: Laboratory Results - last 24 hr 11/27/17 Range/Units 06:55 Sodium 141 (136-145) mEq/L Potassium 4.7 D (3.5-5.0) mEq/L Chloride 105 (98-106) mEq/L Carbon Dioxide 34 H (21-32) mmol/L BUN 19 H (7-18) mg/dL Creatinine 0.8 (0.6-1.0) mg/dL Est Cr Clr Drug Dosing 51.66 mL/min Estimated GFR (MDRD) > 60 (>=60) mL/min Glucose 125 H (75-99) mg/dL Calcium 8.5 (8.4-10.1) mg/dL C-Reactive Protein 0.8 (0.2-0.8) mg/dL Med Orders - Current: Current Medications Acetaminophen (Tylenol) 650 mg PO Q4H PRN PRN Reason: Pain (Mild 1-3)/fever Last Admin: 11/26/17 10:33 Dose: 650 mg Hydrocodone Bitart/Acetaminophen ([place] 325-5 Mg) 1 tab PO Q6H PRN PRN Reason: Pain (moderate 4-6) Last Admin: 11/27/17 05:01 Dose: 1 tab Albuterol (Proventil Neb Soln) 2.5 mg NEB Q2H PRN PRN Reason: Shortness Of Breath/wheezing Last Admin: 11/27/17 06:59 Dose: 2.5 mg Albuterol (Ventolin Hfa) 0 gm INH Q4H PRN PRN Reason: Shortness of Breath Albuterol (Proventil Neb Soln) 2.5 mg NEB Q4H PRN PRN Reason: Shortness of Breath Albuterol/Ipratropium (Duoneb 3.0-0.5 Mg/3 Ml) 3 ml INH QID [facility] Last Admin: 11/26/17 19:48 Dose: 3 ml Budesonide (Pulmicort) 0.5 mg NEB BIDRT [facility] Last Admin: 11/26/17 19:49 Dose: 0.5 mg Carbidopa/Levodopa (Sinemet 25-100 Mg) 1 tab PO QID PRN PRN Reason: RESTLESS LEGS Last Admin: 11/27/17 01:30 Dose: 1 tab Enoxaparin Sodium (Lovenox) 30 mg SUBCUT DAILY@1200 [facility] Furosemide (Lasix) 40 mg PO DAILY [facility] Last Admin: 11/27/17 08:10 Dose: 40 mg Levofloxacin/Dextrose 500 mg/ (Premix) 100 mls @ 100 mls/hr IV DAILY@1600 [facility] Last Admin: 11/26/17 16:11 Dose: 100 mls/hr Losartan Potassium (Cozaar) 100 mg PO DAILY [facility] Last Admin: 11/27/17 08:09 Dose: 100 mg Methylprednisolone Sodium Succinate (Solu-Medrol) 62.5 mg IVPUSH BID@0400,1600 [facility] Last Admin: 11/27/17 04:44 Dose: 62.5 mg Non-Formulary Medication (Mometasone Furoate) 2 sprays KELLI DAILY PRN PRN Reason: Other Non-Formulary Medication (Pramipexole Di-Hcl [Mirapex]) 0.125 mg PO BEDTIME [facility] Ptom - Roflumilast [ (Daliresp] 500 Mcg) 500 mcg PO DAILY [facility] Last Admin: 11/27/17 08:12 Dose: 500 mcg Ondansetron HCl (Zofran) 4 mg IV Q4H PRN PRN Reason: Nausea/Vomiting Last Admin: 11/26/17 10:36 Dose: 4 mg Pantoprazole Sodium (Protonix) 40 mg PO ACBREAKFAST [facility] Last Admin: 11/27/17 06:38 Dose: 40 mg Polyethylene Glycol (Miralax) 17 gm PO DAILY [facility] Last Admin: 11/27/17 08:09 Dose: 17 gm Potassium Chloride (Klor-Con 10) 10 meq PO BID [facility] Last Admin: 11/27/17 08:09 Dose: 10 meq Sertraline HCl (Zoloft) 150 mg PO BEDTIME [facility] Last Admin: 11/26/17 19:49 Dose: 150 mg Simvastatin (Zocor) 20 mg PO BEDTIME [facility] Last Admin: 11/26/17 19:49 Dose: 20 mg Sodium Chloride (Saline Flush) 10 ml FLUSH ASDIRECTED PRN PRN Reason: Keep Vein Open Zolpidem Tartrate (Ambien) 5 mg PO BEDTIME PRN PRN Reason: Insomnia Last Admin: 11/26/17 21:26 Dose: 5 mg Discontinued Medications Carbidopa/Levodopa (Sinemet 25-100 Mg) 1 tab PO TID PRN PRN Reason: RESTLESS LEGS Last Admin: 11/26/17 03:38 Dose: 1 tab Enoxaparin Sodium (Lovenox) 30 mg SUBCUT Q24H [facility] Last Admin: 11/26/17 13:06 Dose: 30 mg Furosemide (Lasix) 40 mg IVPUSH ONETIME ONE Stop: 11/25/17 16:06 Last Admin: 11/25/17 17:13 Dose: 40 mg Levofloxacin/Dextrose 500 mg/ (Premix) 100 mls @ 100 mls/hr IV Q24H [facility] Last Admin: 11/25/17 17:20 Dose: 100 mls/hr Methylprednisolone Sodium Succinate (Solu-Medrol) 62.5 mg IVPUSH Q12H [facility] Last Admin: 11/26/17 03:37 Dose: 62.5 mg Methylprednisolone Sodium Succinate (Solu-Medrol) Confirm Administered Dose 125 mg .ROUTE .STK-MED ONE Stop: 11/27/17 04:58 Last Admin: 11/27/17 05:01 Dose: Not Given Ptom - Esomeprazole Magnesium [Nexium] 40 Mg 40 mg PO ACBREAKFAST [facility] Last Admin: 11/26/17 07:04 Dose: 40 mg Ptom - Rosuvastatin ([Crestor] 5 Mg) 5 mg PO BEDTIME [facility] Last Admin: 11/25/17 19:34 Dose: 5 mg Ptom - Valsartan [ (Diovan] 160 Mg) 160 mg PO DAILY [facility] Last Admin: 11/26/17 08:15 Dose: 160 mg - Exam Quality Assessment: Supplemental Oxygen General: Alert, Oriented HEENT: Mucous Membr. Moist/[place] Neck: Supple Lungs: Clear to Auscultation, Decreased Breath Sounds Cardiovascular: Regular Rate, Regular Rhythm GI/Abdominal Exam: Normal Bowel Sounds, Soft, Non-Tender Extremities: Normal Inspection, No Pedal Edema Skin: Warm, Dry Neurological: No New Focal Deficit - Problem List & Annotations (1) COPD exacerbation SNOMED Code(s): 642481734168885 Code(s): J44.1 - CHRONIC OBSTRUCTIVE PULMONARY DISEASE W (ACUTE) EXACERBATION Status: Acute Priority: High Current Visit: Yes - Problem List Review Problem List Initiated/Reviewed/Updated: Yes - My Orders Last 24 Hours: My Active Orders 11/26/17 09:12 Carbidopa/Levodopa [Sinemet 25-100 mg] 1 tab PO QID PRN 11/26/17 11:00 Furosemide [Lasix] 40 mg PO DAILY 11/26/17 14:24 Consult to Manager Provider Relations [CONS] Routine 11/28/17 05:11 BASIC METABOLIC PANEL,BMP [CHEM] AM C-REACTIVE PROTEIN [CHEM] AM CBC WITH AUTO DIFF [HEME] AM - Assessment Assessment:: COPD Exacerbation - Plan Plan:: Patient very tearful today. States is worried about future plans of how to care for herself and . Believes her health is a huge concern and that she feels unable to care for him. He has had recent surgery and has limited movement of her arms and patient herself has been assisting him but with her breathing concerns, is now having more issues herself. Admits to activity intolerance, gets more short of breath with minimal activity now. Chest feels more tight. Is coughing up clear sputum. Aware to collect a sputum specimen if able. Afebrile. Oxygen sats 92-93% on 2 liters. Patient had been taken off her Lasix 2 weeks ago and was concern of CHF then on admit but ProBNP is normal Will continue with IV Levaquin and Solu Medrol. Restart her Lasix daily. Transfer to acute status. Social service consult in regards to her and her 's living arrangements and ability to return home safely. 11-27-2017 Patient feeling much improved today, breathing much easier. Mood much more stable. States got some answers about her 's condition and will have neck surgery potentially in the future and if that doesn't work out well for him , both of them will go to assisted living. Patient is at ease with this. States children on board and overall, makes her feel much better today. Labs stable today, CRP is improving, down to 0.8 today. Electrolytes normal. Oxygen sat 97-98% on 2 liters. Afebrile. Will continue with IV Levaquin and Solu Medrol today. Continue nebs. Increase activity if able. Possible discharge home in next 1-2 days.
[2017-11-27] MEDS: Budesonide 0.5 MG/2 ML Neb Susp NEB SCH ×2 (09:59→19:35)
[2017-11-27] MEDS: Albuterol/Ipratropium 3.0-0.5 MG/3 ML Neb Soln INH SCH ×4 (09:59→19:35)
[2017-11-27] MEDS: Enoxaparin 30 MG/0.3 ML Syringe SUBCUT SCH (11:53)
[2017-11-27] MEDS: Levofloxacin/Dextrose 5%-Water 500 MG in Premix Bag 1 BAG IV SCH (16:05)
[2017-11-27] MEDS ORDERED: ALPRAZolam 0.5 MG Tab.DIS (ODT) PO PRN (17:03)
[2017-11-27] MEDS: Pramipexole 0.5 MG Tab PO SCH ×3 (18:19→19:36)
[2017-11-27] MEDS: Sertraline 100 MG Tab PO SCH (19:36)
[2017-11-27] MEDS: Simvastatin 20 MG Tab PO SCH (19:37)
[2017-11-27] MEDS: Acetaminophen 325 MG Tab PO PRN (19:37)
[2017-11-27] MEDS: Zolpidem 5 MG Tab PO PRN (21:56)
[2017-11-28] MEDS: methylPREDNISolone Sodium Succinate 125 MG/2 ML SDV IVPUSH SCH ×2 (04:06→16:04)
[2017-11-28] MEDS: Pantoprazole 40 MG Tab.CR PO SCH (06:53)
[2017-11-28 07:22] LABS: CHLORIDE,CL 103 mEq/L (98-106); SODIUM,NA 139 mEq/L (136-145)
[2017-11-28] MEDS: Potassium Chloride 10 MEQ Tab.ER PO SCH ×2 (07:43→19:54)
[2017-11-28] MEDS: Losartan 100 MG Tab PO SCH (07:43)
[2017-11-28] MEDS: Albuterol/Ipratropium 3.0-0.5 MG/3 ML Neb Soln INH SCH ×4 (07:44→19:52)
[2017-11-28] MEDS: Furosemide 40 MG Tab PO SCH (07:44)
[2017-11-28] MEDS: Polyethylene Glycol 3350 Powder 17 GM Packet PO SCH (07:45)
[2017-11-28] MEDS: ROFLUMILAST 500 MCG PO SCH (07:46)
[2017-11-28] MEDS: Budesonide 0.5 MG/2 ML Neb Susp NEB SCH ×2 (08:39→19:52)
--- NOTE | 2017-11-28 09:10 | PCM.PN ---
- General Info Date of Service: 11/28/17 Admission Dx/Problem (Free Text): COPD Exacerbation Functional Status: Reports: Pain Controlled, Tolerating Diet, Ambulating - Review of Systems General: Reports: Weakness. Denies: Fever, Fatigue, Malaise HEENT: Reports: Rhinitis. Denies: Sore Throat Pulmonary: Reports: Shortness of Breath, Cough, Wheezing Cardiovascular: Denies: Chest Pain, Edema, Lightheadedness Gastrointestinal: Denies: Abdominal Pain, Nausea, Vomiting Genitourinary: Reports: No Symptoms Musculoskeletal: Reports: No Symptoms Skin: Reports: No Symptoms Neurological: Reports: No Symptoms Psychiatric: Reports: No Symptoms - Patient Data Vitals - Most Recent: Last Vital Signs Temp 99.0 F 11/28/17 07:37 Pulse 92 11/28/17 07:37 Resp 20 11/28/17 07:37 BP 147/71 H 11/28/17 07:43 Pulse Ox 95 11/28/17 07:37 Weight - Most Recent: 171 lb 4.787 oz Lab Results Last 24 Hours: Laboratory Results - last 24 hr 11/28/17 11/28/17 Range/Units 05:11 05:11 WBC 16.9 H (5.0-10.0) 10^3/uL RBC 3.01 L (4.00-5.50) 10^6/uL Hgb 10.9 L (12.0-16.0) g/dL Hct 33.4 L (37.0-47.0) % MCV 111.0 H (82.0-94.0) fL MCH 36.2 H (27.0-32.0) pg MCHC 32.6 L (33.0-38.0) g/dL RDW Coeff of Claude 14.3 (11.0-15.0) % Plt Count 428 H (150-400) 10^3/uL Neut % (Auto) 90.5 H (35-85) % Lymph % (Auto) 5.1 L (10-55) % [place] % (Auto) 4.3 (0-16) % Eos % (Auto) 0 (0-5) % Baso % (Auto) 0.1 (0-3) % Neut # (Auto) 15.27 H (1.80-7.00) 10^3/uL Lymph # (Auto) 0.86 L (1.00-4.80) 10^3/uL [place] # (Auto) 0.72 (0.00-0.80) 10^3/uL Eos # (Auto) 0.00 (0.00-0.45) 10^3/uL Baso # (Auto) 0.01 10^3/uL Sodium 139 (136-145) mEq/L Potassium 4.5 (3.5-5.0) mEq/L Chloride 103 (98-106) mEq/L Carbon Dioxide 31 (21-32) mmol/L BUN 18 (7-18) mg/dL Creatinine 0.8 (0.6-1.0) mg/dL Est Cr Clr Drug Dosing 51.66 mL/min Estimated GFR (MDRD) > 60 (>=60) mL/min Glucose 134 H (75-99) mg/dL Calcium 8.9 (8.4-10.1) mg/dL C-Reactive Protein 0.2 (0.2-0.8) mg/dL Med Orders - Current: Current Medications Acetaminophen (Tylenol) 650 mg PO Q4H PRN PRN Reason: Pain (Mild 1-3)/fever Last Admin: 11/27/17 19:37 Dose: 650 mg Hydrocodone Bitart/Acetaminophen ([place] 325-5 Mg) 1 tab PO Q6H PRN PRN Reason: Pain (moderate 4-6) Last Admin: 11/27/17 16:03 Dose: 1 tab Albuterol (Proventil Neb Soln) 2.5 mg NEB Q2H PRN PRN Reason: Shortness Of Breath/wheezing Last Admin: 11/27/17 06:59 Dose: 2.5 mg Albuterol (Ventolin Hfa) 0 gm INH Q4H PRN PRN Reason: Shortness of Breath Albuterol (Proventil Neb Soln) 2.5 mg NEB Q4H PRN PRN Reason: Shortness of Breath Albuterol/Ipratropium (Duoneb 3.0-0.5 Mg/3 Ml) 3 ml INH QID [facility] Last Admin: 11/28/17 07:44 Dose: 3 ml Alprazolam (Alprazolam Odt) 0.5 - 1 mg PO Q8H PRN PRN Reason: Anxiety Budesonide (Pulmicort) 0.5 mg NEB BIDRT [facility] Last Admin: 11/28/17 08:39 Dose: 0.5 mg Carbidopa/Levodopa (Sinemet 25-100 Mg) 1 tab PO QID PRN PRN Reason: RESTLESS LEGS Last Admin: 11/27/17 23:41 Dose: 1 tab Enoxaparin Sodium (Lovenox) 30 mg SUBCUT DAILY@1200 [facility] Last Admin: 11/27/17 11:53 Dose: 30 mg Fluticasone Propionate (Flonase) 0 gm KELLI DAILY PRN PRN Reason: Other Furosemide (Lasix) 40 mg PO DAILY [facility] Last Admin: 11/28/17 07:44 Dose: 40 mg Levofloxacin/Dextrose 500 mg/ (Premix) 100 mls @ 100 mls/hr IV DAILY@1600 [facility] Last Admin: 11/27/17 16:05 Dose: 100 mls/hr Losartan Potassium (Cozaar) 100 mg PO DAILY [facility] Last Admin: 11/28/17 07:43 Dose: 100 mg Methylprednisolone Sodium Succinate (Solu-Medrol) 62.5 mg IVPUSH BID@0400,1600 [facility] Last Admin: 11/28/17 04:06 Dose: 62.5 mg Ptom - Roflumilast [ (Daliresp] 500 Mcg) 500 mcg PO DAILY [facility] Last Admin: 11/28/17 07:46 Dose: 500 mcg Ondansetron HCl (Zofran) 4 mg IV Q4H PRN PRN Reason: Nausea/Vomiting Last Admin: 11/26/17 10:36 Dose: 4 mg Pantoprazole Sodium (Protonix) 40 mg PO ACBREAKFAST [facility] Last Admin: 11/28/17 06:53 Dose: 40 mg Polyethylene Glycol (Miralax) 17 gm PO DAILY [facility] Last Admin: 11/28/17 07:45 Dose: Not Given Potassium Chloride (Klor-Con 10) 10 meq PO BID [facility] Last Admin: 11/28/17 07:43 Dose: 10 meq Pramipexole Dihydrochloride (Mirapex) 0.125 mg PO BEDTIME [facility] Last Admin: 11/27/17 19:36 Dose: 0.125 mg Sertraline HCl (Zoloft) 150 mg PO BEDTIME [facility] Last Admin: 11/27/17 19:36 Dose: 150 mg Simvastatin (Zocor) 20 mg PO BEDTIME [facility] Last Admin: 11/27/17 19:37 Dose: 20 mg Sodium Chloride (Saline Flush) 10 ml FLUSH ASDIRECTED PRN PRN Reason: Keep Vein Open Zolpidem Tartrate (Ambien) 5 mg PO BEDTIME PRN PRN Reason: Insomnia Last Admin: 11/27/17 21:56 Dose: 5 mg Discontinued Medications Carbidopa/Levodopa (Sinemet 25-100 Mg) 1 tab PO TID PRN PRN Reason: RESTLESS LEGS Last Admin: 11/26/17 03:38 Dose: 1 tab Enoxaparin Sodium (Lovenox) 30 mg SUBCUT Q24H [facility] Last Admin: 11/26/17 13:06 Dose: 30 mg Furosemide (Lasix) 40 mg IVPUSH ONETIME ONE Stop: 11/25/17 16:06 Last Admin: 11/25/17 17:13 Dose: 40 mg Levofloxacin/Dextrose 500 mg/ (Premix) 100 mls @ 100 mls/hr IV Q24H [facility] Last Admin: 11/25/17 17:20 Dose: 100 mls/hr Methylprednisolone Sodium Succinate (Solu-Medrol) 62.5 mg IVPUSH Q12H [facility] Last Admin: 11/26/17 03:37 Dose: 62.5 mg Methylprednisolone Sodium Succinate (Solu-Medrol) Confirm Administered Dose 125 mg .ROUTE .STK-MED ONE Stop: 11/27/17 04:58 Last Admin: 11/27/17 05:01 Dose: Not Given Ptom - Esomeprazole Magnesium [Nexium] 40 Mg 40 mg PO ACBREAKFAST [facility] Last Admin: 11/26/17 07:04 Dose: 40 mg Ptom - Rosuvastatin ([Crestor] 5 Mg) 5 mg PO BEDTIME [facility] Last Admin: 11/25/17 19:34 Dose: 5 mg Ptom - Valsartan [ (Diovan] 160 Mg) 160 mg PO DAILY [facility] Last Admin: 11/26/17 08:15 Dose: 160 mg - Exam Quality Assessment: Supplemental Oxygen General: Alert, Oriented HEENT: Mucous Membr. Moist/[place] Neck: Supple Lungs: Normal Respiratory Effort, Wheezing Cardiovascular: Regular Rate, Regular Rhythm GI/Abdominal Exam: Normal Bowel Sounds, Soft, Non-Tender Extremities: Normal Inspection, No Pedal Edema Skin: Warm, Dry Neurological: No New Focal Deficit - Problem List & Annotations (1) COPD exacerbation SNOMED Code(s): 271555332711371 Code(s): J44.1 - CHRONIC OBSTRUCTIVE PULMONARY DISEASE W (ACUTE) EXACERBATION Status: Acute Priority: High Current Visit: Yes - Problem List Review Problem List Initiated/Reviewed/Updated: Yes - Assessment Assessment:: COPD Exacerbation - Plan Plan:: Patient very tearful today. States is worried about future plans of how to care for herself and . Believes her health is a huge concern and that she feels unable to care for him. He has had recent surgery and has limited movement of her arms and patient herself has been assisting him but with her breathing concerns, is now having more issues herself. Admits to activity intolerance, gets more short of breath with minimal activity now. Chest feels more tight. Is coughing up clear sputum. Aware to collect a sputum specimen if able. Afebrile. Oxygen sats 92-93% on 2 liters. Patient had been taken off her Lasix 2 weeks ago and was concern of CHF then on admit but ProBNP is normal Will continue with IV Levaquin and Solu Medrol. Restart her Lasix daily. Transfer to acute status. Social service consult in regards to her and her 's living arrangements and ability to return home safely. 11-27-2017 Patient feeling much improved today, breathing much easier. Mood much more stable. got some answers about her 's condition and will have neck surgery potentially in the future and if that doesn't work out well for him , both of them will go to assisted living. Patient is at ease with this. States children on board and overall, makes her feel much better today. Labs stable today, CRP is improving, down to 0.8 today. Electrolytes normal. Oxygen sat 97-98% on 2 liters. Afebrile. Will continue with IV Levaquin and Solu Medrol today. Continue nebs. Increase activity if able. Possible discharge home in next 1-2 days. 11-28-2017 Patient states feels chest is more tight this am. Audible wheezing. Cough tight. Oxygen sats have been good, 95% on 2 liters which she uses chronically. WBC is up, likely from steroids, CRP down to normal. Afebrile. Relates was up and ambulating yesterday in halls and tolerated fairly well. Will continue with nebs, Levaquin and steroids. Probable discharge home tomorrow.
[2017-11-28] MEDS: Enoxaparin 30 MG/0.3 ML Syringe SUBCUT SCH (11:27)
[2017-11-28] MEDS: Carbidopa/Levodopa 25-100 MG Tab PO PRN (15:11)
[2017-11-28] MEDS: Acetaminophen/HYDROcodone 325-5 MG Tab PO PRN (15:11)
[2017-11-28] MEDS: Levofloxacin/Dextrose 5%-Water 500 MG in Premix Bag 1 BAG IV SCH (16:06)
[2017-11-28] MEDS: Pramipexole 0.5 MG Tab PO SCH (19:52)
[2017-11-28] MEDS: Sertraline 100 MG Tab PO SCH (19:53)
[2017-11-28] MEDS: Simvastatin 20 MG Tab PO SCH (19:53)
[2017-11-28] MEDS: Zolpidem 5 MG Tab PO PRN (21:42)
[2017-11-29] MEDS: Carbidopa/Levodopa 25-100 MG Tab PO PRN (04:07)
[2017-11-29] MEDS: Acetaminophen/HYDROcodone 325-5 MG Tab PO PRN (04:08)
[2017-11-29] MEDS: methylPREDNISolone Sodium Succinate 125 MG/2 ML SDV IVPUSH SCH (04:08)
[2017-11-29] MEDS: Pantoprazole 40 MG Tab.CR PO SCH (06:58)
[2017-11-29] MEDS: Budesonide 0.5 MG/2 ML Neb Susp NEB SCH (07:41)
[2017-11-29] MEDS: Furosemide 40 MG Tab PO SCH (07:41)
[2017-11-29] MEDS: Albuterol/Ipratropium 3.0-0.5 MG/3 ML Neb Soln INH SCH (07:41)
[2017-11-29] MEDS: Polyethylene Glycol 3350 Powder 17 GM Packet PO SCH (07:41)
[2017-11-29 07:42] VITALS: BP 156/77
[2017-11-29] MEDS: Losartan 100 MG Tab PO SCH (07:42)
[2017-11-29] MEDS: Potassium Chloride 10 MEQ Tab.ER PO SCH (07:42)
[2017-11-29] MEDS: ROFLUMILAST 500 MCG PO SCH (07:43)
--- NOTE | 2017-11-29 09:24 | PCM.DCSUM1 ---
Discharge Summary - Hospital Course HPI Initial Comments: Evette is a 77 year old female who was admitted to the hospital from the clinic on 11/25/2017 for COPD exacerbation. She was treated with IV Levaquin, solu-medrol, and Duonebs. Throughout hospital stay, her breathing improved. She was maintaining O2 sat > 92% on 2L, which she is on chronically. At the time of discharge her shortness of breath had returned to baseline. She was afebrile. She felt ready for discharge. She will be discharged home on 5 additional days of Levaquin and prednisone. She is to follow up with her PCP in 5-7 days. - Discharge Data Discharge Date: 11/29/17 Discharge Disposition: Home, Self-Care 01 Condition: Good - Discharge Diagnosis/Problem(s) (1) COPD exacerbation SNOMED Code(s): 658243365607823 ICD Code: J44.1 - CHRONIC OBSTRUCTIVE PULMONARY DISEASE W (ACUTE) EXACERBATION Status: Acute Priority: High - Patient Summary/Data Consults: Consultations 11/26/17 14:24 Consult to Propagation Manager [CONS] Routine - Patient Instructions Diet: Usual Diet as Tolerated Activity: As Tolerated Notify Provider of: Fever - Discharge Plan Prescriptions/Med Rec: Levofloxacin [Levaquin] 500 mg PO DAILY 5 Days #5 tab Prednisone [IJD: predniSONE] 20 mg PO DAILY #5 tab Home Medications: Home Meds ALPRAZolam [Alprazolam] 1 - 2 tab PO Q8H PRN 05/01/14 [History] Cyanocobalamin (Vitamin B12) [Vitamin B12] 1,000 mcg IM Q30D 05/01/14 [History] Esomeprazole Magnesium [Nexium] 40 mg PO ACBREAKFAST 05/01/14 [History] Hydrocodone/Acetaminophen [Hydrocodone-Acetaminophen 5-325] 1 tab PO Q6H PRN [History] Multivit-Min/FA/Lycopene/Lut [Centrum Silver] 1 tab PO DAILY 05/01/14 [History] Potassium Chloride [Klor-Con 10] 10 meq PO BID 05/01/14 [History] Roflumilast [Daliresp] 500 mcg PO DAILY 05/01/14 [History] Rosuvastatin [Crestor] 5 mg PO BEDTIME 05/01/14 [History] Sertraline [Zoloft] 150 mg PO BEDTIME 05/01/14 [History] Valsartan [Diovan] 160 mg PO DAILY 05/01/14 [History] Zolpidem [Ambien] 5 mg PO BEDTIME PRN 05/01/14 [History] Albuterol [Proair HFA] 2 puff INH Q4H PRN 04/28/15 [History] Ibuprofen 400 - 800 mg PO Q8H PRN 04/28/15 [History] Ranitidine [Zantac] 150 mg PO BEDTIME 09/18/15 [History] Albuterol [Proventil Neb Soln] 2.5 mg NEB Q4H PRN #180 ml 09/19/15 [Rx] Albuterol/Ipratropium [DuoNeb 3.0-0.5 MG/3 ML] 3 ml INH QID #360 ml 09/19/15 [Rx ] Carbidopa/Levodopa [Carbidopa-Levodopa 25-100] 1 tab PO TID PRN #0 tablet [Rx] Nystatin [Nystatin Crm] 1 applic TOP QID PRN 06/06/16 [History] Budesonide [Pulmicort] 0.5 mg NEB BIDRT 12/30/16 [History] Polyethylene Glycol 3350 [MiraLAX] 17 gm PO DAILY 12/30/16 [History] Mupirocin Cream [Bactroban Crm] 1 applic TOP TID PRN 02/10/17 [History] Clotrimazole/Betamethasone Dip [Lotrisone Cream] 15 gm TP ASDIRECTED PRN [History] Albuterol [Ventolin HFA] 2 puff INH Q4H PRN 11/25/17 [History] Mometasone Furoate 2 sprays KELLI DAILY PRN 11/25/17 [History] Pramipexole Di-HCl [Mirapex] 0.125 mg PO BEDTIME 11/25/17 [History] Levofloxacin [Levaquin] 500 mg PO DAILY 5 Days #5 tab 11/29/17 [Rx] Prednisone [IJD: predniSONE] 20 mg PO DAILY #5 tab 11/29/17 [Rx] Patient Handouts: Chronic Obstructive Pulmonary Disease Exacerbation Referrals: Lopez Herring MD [Primary Care Provider] - - General Info Functional Status: Reports: Pain Controlled, Tolerating Diet, Ambulating, Urinating. Denies: New Symptoms - Review of Systems General: Denies: Fever, Weakness, Fatigue Pulmonary: Denies: Shortness of Breath, Cough, Sputum Cardiovascular: Reports: Dyspnea on Exertion. Denies: Chest Pain, Lightheadedness Gastrointestinal: Reports: No Symptoms Neurological: Reports: No Symptoms - Patient Data Vitals - Most Recent: Last Vital Signs Temp 98.2 F 11/29/17 07:35 Pulse 87 11/29/17 07:35 Resp 18 11/29/17 07:35 BP 156/77 H 11/29/17 07:42 Pulse Ox 96 11/29/17 07:35 Weight - Most Recent: 171 lb 4.787 oz Lab Results - Last 24 hrs: Laboratory Results - last 24 hr 11/28/17 Range/Units 10:48 Troponin I < 0.017 (0.00-0.06) ng/mL Med Orders - Current: Current Medications Acetaminophen (Tylenol) 650 mg PO Q4H PRN PRN Reason: Pain (Mild 1-3)/fever Last Admin: 11/27/17 19:37 Dose: 650 mg Hydrocodone Bitart/Acetaminophen ([place] 325-5 Mg) 1 tab PO Q6H PRN PRN Reason: Pain (moderate 4-6) Last Admin: 11/29/17 04:08 Dose: 1 tab Albuterol (Proventil Neb Soln) 2.5 mg NEB Q2H PRN PRN Reason: Shortness Of Breath/wheezing Last Admin: 11/27/17 06:59 Dose: 2.5 mg Albuterol (Ventolin Hfa) 0 gm INH Q4H PRN PRN Reason: Shortness of Breath Albuterol (Proventil Neb Soln) 2.5 mg NEB Q4H PRN PRN Reason: Shortness of Breath Albuterol/Ipratropium (Duoneb 3.0-0.5 Mg/3 Ml) 3 ml INH QID [facility] Last Admin: 11/29/17 07:41 Dose: 3 ml Alprazolam (Alprazolam Odt) 0.5 - 1 mg PO Q8H PRN PRN Reason: Anxiety Budesonide (Pulmicort) 0.5 mg NEB BIDRT [facility] Last Admin: 01/20/18 07:41 Dose: 0.5 mg Carbidopa/Levodopa (Sinemet 25-100 Mg) 1 tab PO QID PRN PRN Reason: RESTLESS LEGS Last Admin: 11/29/17 04:07 Dose: 1 tab Enoxaparin Sodium (Lovenox) 30 mg SUBCUT DAILY@1200 [facility] Last Admin: 11/28/17 11:27 Dose: 30 mg Fluticasone Propionate (Flonase) 0 gm KELLI DAILY PRN PRN Reason: Other Furosemide (Lasix) 40 mg PO DAILY [facility] Last Admin: 11/29/17 07:41 Dose: 40 mg Levofloxacin/Dextrose 500 mg/ (Premix) 100 mls @ 100 mls/hr IV DAILY@1600 [facility] Last Admin: 11/28/17 16:06 Dose: 100 mls/hr Losartan Potassium (Cozaar) 100 mg PO DAILY [facility] Last Admin: 11/29/17 07:42 Dose: 100 mg Methylprednisolone Sodium Succinate (Solu-Medrol) 62.5 mg IVPUSH BID@0400,1600 [facility] Last Admin: 11/29/17 04:08 Dose: 62.5 mg Ptom - Roflumilast [ (Daliresp] 500 Mcg) 500 mcg PO DAILY [facility] Last Admin: 11/29/17 07:43 Dose: 500 mcg Ondansetron HCl (Zofran) 4 mg IV Q4H PRN PRN Reason: Nausea/Vomiting Last Admin: 11/26/17 10:36 Dose: 4 mg Pantoprazole Sodium (Protonix) 40 mg PO ACBREAKFAST [facility] Last Admin: 11/29/17 06:58 Dose: 40 mg Polyethylene Glycol (Miralax) 17 gm PO DAILY [facility] Last Admin: 11/29/17 07:41 Dose: 17 gm Potassium Chloride (Klor-Con 10) 10 meq PO BID [facility] Last Admin: 11/29/17 07:42 Dose: 10 meq Pramipexole Dihydrochloride (Mirapex) 0.125 mg PO BEDTIME [facility] Last Admin: 11/28/17 19:52 Dose: 0.125 mg Sertraline HCl (Zoloft) 150 mg PO BEDTIME [facility] Last Admin: 11/28/17 19:53 Dose: 150 mg Simvastatin (Zocor) 20 mg PO BEDTIME [facility] Last Admin: 11/28/17 19:53 Dose: 20 mg Sodium Chloride (Saline Flush) 10 ml FLUSH ASDIRECTED PRN PRN Reason: Keep Vein Open Zolpidem Tartrate (Ambien) 5 mg PO BEDTIME PRN PRN Reason: Insomnia Last Admin: 11/28/17 21:42 Dose: 5 mg Discontinued Medications Carbidopa/Levodopa (Sinemet 25-100 Mg) 1 tab PO TID PRN PRN Reason: RESTLESS LEGS Last Admin: 11/26/17 03:38 Dose: 1 tab Enoxaparin Sodium (Lovenox) 30 mg SUBCUT Q24H [facility] Last Admin: 11/26/17 13:06 Dose: 30 mg Furosemide (Lasix) 40 mg IVPUSH ONETIME ONE Stop: 11/25/17 16:06 Last Admin: 11/25/17 17:13 Dose: 40 mg Levofloxacin/Dextrose 500 mg/ (Premix) 100 mls @ 100 mls/hr IV Q24H [facility] Last Admin: 11/25/17 17:20 Dose: 100 mls/hr Methylprednisolone Sodium Succinate (Solu-Medrol) 62.5 mg IVPUSH Q12H [facility] Last Admin: 11/26/17 03:37 Dose: 62.5 mg Methylprednisolone Sodium Succinate (Solu-Medrol) Confirm Administered Dose 125 mg .ROUTE .STK-MED ONE Stop: 11/27/17 04:58 Last Admin: 11/27/17 05:01 Dose: Not Given Ptom - Esomeprazole Magnesium [Nexium] 40 Mg 40 mg PO ACBREAKFAST [facility] Last Admin: 11/26/17 07:04 Dose: 40 mg Ptom - Rosuvastatin ([Crestor] 5 Mg) 5 mg PO BEDTIME [facility] Last Admin: 11/25/17 19:34 Dose: 5 mg Ptom - Valsartan [ (Diovan] 160 Mg) 160 mg PO DAILY [facility] Last Admin: 11/26/17 08:15 Dose: 160 mg - Exam Quality Assessment: Reports: Supplemental Oxygen General: Reports: Alert, Oriented Neck: Reports: Supple Lungs: Reports: Normal Respiratory Effort, Decreased Breath Sounds Cardiovascular: Reports: Regular Rate, Regular Rhythm GI/Abdominal Exam: Normal Bowel Sounds, Soft, Non-Tender, No Organomegaly, No Distention, No Abnormal Bruit, No Mass, Pelvis Stable Neurological: Reports: No New Focal Deficit Psy/Mental Status: Reports: Alert, Normal Affect, Normal Mood *Q Meaningful Use (DIS) - VTE *Q VTE Criteria *Q: - Stroke *Q Stroke Criteria *Q: - AMI *Q AMI Criteria *Q:
== END 2017-11-29 10:54 | disposition home or self-care (01) | DRG 192 ==
LOC: CC.MS 12:32 → UNDOADMOB 12:32 → CC.MS 12:47 → OBSVTOIN 11-26 14:16
PROVIDERS: ADMIT Family Medicine; ATTEND Family Medicine
DX: J44.1 Chronic obstructive pulmonary disease with (acute) exacerbation (principal); I10 Essential (primary) hypertension; R06.02 Shortness of breath; E78.5 Hyperlipidemia, unspecified; K21.9 Gastro-esophageal reflux disease without esophagitis; F32.9 Major depressive disorder, single episode, unspecified; F41.9 Anxiety disorder, unspecified; E53.8 Deficiency of other specified B group vitamins; M17.0 Bilateral primary osteoarthritis of knee; G25.81 Restless legs syndrome; Z86.11 Personal history of tuberculosis; Z96.659 Presence of unspecified artificial knee joint; Z79.52 Long term (current) use of systemic steroids
CPT/HCPCS: 36415; 71046; 80048; 81001; 83880; 84484; 85025; 86140; 87070; 87205; 93005; 94640 ×3; A9270 ×15; J1650 ×2; J1940; J1956; J2405; J2930 ×2; J7620; 93010; 96365; 96372; 96375; 96376; 99220; G0378

== ENCOUNTER 2017-12-30 13:54 | Emergency (ER) | payer MEDICARE, MEDICAID ==
[2017-12-30 14:33] VITALS: BP 149/85
[2017-12-30 14:36] LABS: CHLORIDE,CL 104 mEq/L (98-106); SODIUM,NA 144 mEq/L (136-145)
--- NOTE | 2017-12-30 18:10 | EDM.PDOC ---
ED HPI GENERAL MEDICAL PROBLEM - General Chief Complaint: Respiratory Problem Stated Complaint: SOB Time Seen by Provider: 12/30/17 14:10 Source of Information: Reports: Patient History Limitations: Reports: No Limitations - History of Present Illness INITIAL COMMENTS - FREE TEXT/NARRATIVE: Evette is a 77 yo female who presents to the ER via EMS with concerns of shortness of breath. She states she has been having trouble with her oxygen concentrator at home and he O2 sat has been down around 77%. She states symptoms initially started a few months ago but has been gradually getting worse. She states the machine she has at home hasn't been working and has been trying to use her portable one. States [facility] were suppose to fix it but they told her it was working fine. She admits after having oxygen on she feels great again. Generalized Pain Score (Numeric/FACES): 6 - Related Data Allergies Allergy/AdvReac Type Severity Reaction Status Date / Time amoxicillin Allergy Itching Verified 12/30/17 14:38 aspirin Allergy Cannot Verified 12/30/17 14:38 Remember cefuroxime [From Ceftin] Allergy Rash Verified 12/30/17 14:38 cephalexin [From Keflex] Allergy Rash Verified 12/30/17 14:38 cephalexin monohydrate Allergy Dizziness Verified 12/30/17 14:38 [From Keflex] ciprofloxacin [From Cipro] Allergy Rash Verified 12/30/17 14:38 codeine Allergy Nausea Verified 12/30/17 14:38 doxycycline Allergy Hives Verified 12/30/17 14:38 gabapentin Allergy Cannot Verified 12/30/17 14:38 Remember kiwi Allergy Itching Verified 12/30/17 14:38 loratadine Allergy Headache Verified 12/30/17 14:38 montelukast sodium Allergy Nausea Verified 12/30/17 14:38 [From Singulair] morphine Allergy Nausea Verified 12/30/17 14:38 nitrofurantoin Allergy Diarrhea Verified 12/30/17 14:38 [From Macrobid] paroxetine HCl [From Paxil] Allergy Itching Verified 12/30/17 14:38 pregabalin [From Lyrica] Allergy Syncope Verified 12/30/17 14:38 procaine HCl [From Novocain] Allergy Rash Verified 12/30/17 14:38 promethazine [From Phenergan] Allergy Nervousness Verified 12/30/17 14:38 ropinirole [From Requip] Allergy Headache Verified 12/30/17 14:38 sulfamethoxazole Allergy Rash Verified 12/30/17 14:38 [From Bactrim] trimethoprim [From Bactrim] Allergy Rash Verified 12/30/17 14:38 tuberculin,PPD,multi-puncture Allergy Other Verified 12/30/17 14:38 venlafaxine Allergy Cannot Verified 12/30/17 14:38 Remember solumedrol Allergy Itching Uncoded 12/30/17 14:38 Home Meds: Home Meds ALPRAZolam [Alprazolam] 1 - 2 tab PO Q8H PRN 05/01/14 [History] Cyanocobalamin (Vitamin B12) [Vitamin B12] 1,000 mcg IM Q30D 05/01/14 [History] Esomeprazole Magnesium [Nexium] 40 mg PO ACBREAKFAST 05/01/14 [History] Hydrocodone/Acetaminophen [Hydrocodone-Acetaminophen 5-325] 1 tab PO Q6H PRN [History] Multivit-Min/FA/Lycopene/Lut [Centrum Silver] 1 tab PO DAILY 05/01/14 [History] Potassium Chloride [Klor-Con 10] 10 meq PO BID 05/01/14 [History] Roflumilast [Daliresp] 500 mcg PO DAILY 05/01/14 [History] Rosuvastatin [Crestor] 5 mg PO BEDTIME 05/01/14 [History] Sertraline [Zoloft] 150 mg PO BEDTIME 05/01/14 [History] Valsartan [Diovan] 160 mg PO DAILY 05/01/14 [History] Zolpidem [Ambien] 5 mg PO BEDTIME PRN 05/01/14 [History] Albuterol [Proair HFA] 2 puff INH Q4H PRN 04/28/15 [History] Ibuprofen 400 - 800 mg PO Q8H PRN 04/28/15 [History] Ranitidine [Zantac] 150 mg PO BEDTIME 09/18/15 [History] Albuterol [Proventil Neb Soln] 2.5 mg NEB Q4H PRN #180 ml 09/19/15 [Rx] Albuterol/Ipratropium [DuoNeb 3.0-0.5 MG/3 ML] 3 ml INH QID #360 ml 09/19/15 [Rx ] Carbidopa/Levodopa [Carbidopa-Levodopa 25-100] 1 tab PO TID PRN #0 tablet [Rx] Budesonide [Pulmicort] 0.5 mg NEB BIDRT 12/30/16 [History] Polyethylene Glycol 3350 [MiraLAX] 17 gm PO DAILY 12/30/16 [History] Albuterol [Ventolin HFA] 2 puff INH Q4H PRN 11/25/17 [History] Mometasone Furoate 2 sprays KELLI DAILY PRN 11/25/17 [History] Past Medical History HEENT History: Reports: Allergic Rhinitis, Cataract, Hard of Hearing, Impaired Vision Cardiovascular History: Reports: Aneurysm, High Cholesterol, Hypertension, MA Respiratory History: Reports: Asthma, COPD, SOB Gastrointestinal History: Reports: GERD Other Genitourinary History: HYSTERECTOMY Musculoskeletal History: Reports: Fibromyalgia, Osteoarthritis, Other (See Below ) Other Musculoskeletal History: restless leg syndrome. Neurological History: Reports: Other (See Below) Other Neuro History: meningitis Psychiatric History: Reports: Anxiety, Depression Endocrine/Metabolic History: Reports: Diabetes, Type II, Obesity/BMI 30+ Hematologic History: Reports: None Immunologic History: Reports: None Dermatologic History: Reports: None Other Dermatologic History: shingles - Infectious Disease History Infectious Disease History: Reports: None - Past Surgical History HEENT Surgical History: Reports: Cataract Surgery GI Surgical History: Reports: Appendectomy Neurological Surgical History: Reports: Other (See Below) Musculoskeletal Surgical History: Reports: Knee Replacement Social & Family History - Family History Family Medical History: Noncontributory HEENT: Reports: None Cardiac: Reports: Hypertension Respiratory: Reports: Asthma, COPD Oncologic: Reports: Colon - Tobacco Use Smoking Status *Q: Former Smoker Years of Tobacco use: 20 Packs/Tins Daily: 3 Used Tobacco, but Quit: Yes Month Tobacco Last Used: 44 YEARS AGO Second Hand Smoke Exposure: No - Caffeine Use Caffeine Use: Reports: Coffee, Soda - Alcohol Use Days Per Week of Alcohol Use: 0 - Recreational Drug Use Recreational Drug Use: No Drug Use in Last 12 Months: No - Sexual History Sexual History: Reports: None - Living Situation & Occupation Living situation: Reports: , with Spouse Occupation: Retired ED ROS GENERAL - Review of Systems Review Of Systems: See Below Constitutional: Reports: Chills, Weakness. Denies: Fever HEENT: Reports: No Symptoms Respiratory: Reports: Shortness of Breath. Denies: Wheezing Cardiovascular: Reports: Chest Pain, Lightheadedness. Denies: Syncope GI/Abdominal: Reports: No Symptoms : Reports: No Symptoms Skin: Reports: No Symptoms ED EXAM, GENERAL - Physical Exam Exam: See Below Exam Limited By: No Limitations General Appearance: Alert, No Apparent Distress Ears: Normal External Exam, Normal Canal, Hearing Grossly Normal, Normal TMs Nose: Normal Inspection, No Blood Throat/Mouth: Normal Inspection, Normal Lips, Normal Teeth, Normal Gums, Normal Voice, No Airway Compromise Head: Atraumatic, Normocephalic Neck: Normal Inspection, Supple Respiratory/Chest: No Respiratory Distress, Lungs Clear, Decreased Breath Sounds. No: Crackles, Rales, Rhonchi, Wheezing, Accessory Muscle Use Cardiovascular: Regular Rate, Rhythm, No Edema GI/Abdominal: Normal Bowel Sounds, Soft, No Organomegaly, No Distention, No Abnormal Bruit Extremities: Normal Inspection, No Pedal Edema Neurological: Alert, Oriented, Normal Cognition, No Motor/Sensory Deficits Psychiatric: Normal Affect, Normal Mood Skin Exam: Warm, Dry, Intact, Normal Color Course - Vital Signs Last Recorded V/S: Last Vital Signs Temp 97.8 F 12/30/17 13:55 Pulse 94 12/30/17 13:55 Resp 20 12/30/17 13:55 BP 149/85 H 12/30/17 13:55 Pulse Ox 94 L 12/30/17 13:55 - Orders/Labs/Meds Orders: Active Orders 24 hr Category Date Time Status Chest 2V [CR] Stat Exams 12/30/17 14:01 Taken Labs: Laboratory Tests 12/30/17 12/30/17 12/30/17 Range/Units 14:10 14:10 14:11 WBC 10.9 H (5.0-10.0) 10^3/uL RBC 3.11 L (4.00-5.50) 10^6/uL Hgb 10.9 L (12.0-16.0) g/dL Hct 35.0 L (37.0-47.0) % MCV 112.5 H (82.0-94.0) fL MCH 35.0 H (27.0-32.0) pg MCHC 31.1 L (33.0-38.0) g/dL RDW Coeff of Claude 14.6 (11.0-15.0) % Plt Count 333 (150-400) 10^3/uL Neut % (Auto) 73.1 (35-85) % Lymph % (Auto) 15.4 (10-55) % [place] % (Auto) 7.7 (0-16) % Eos % (Auto) 3.7 (0-5) % Baso % (Auto) 0.1 (0-3) % Neut # (Auto) 7.99 H (1.80-7.00) 10^3/uL Lymph # (Auto) 1.68 (1.00-4.80) 10^3/uL [place] # (Auto) 0.84 H (0.00-0.80) 10^3/uL Eos # (Auto) 0.40 (0.00-0.45) 10^3/uL Baso # (Auto) 0.01 10^3/uL Sodium 144 (136-145) mEq/L Potassium 3.7 (3.5-5.0) mEq/L Chloride 104 (98-106) mEq/L Carbon Dioxide 35 H (21-32) mmol/L BUN 16 (7-18) mg/dL Creatinine 0.6 (0.6-1.0) mg/dL Est Cr Clr Drug Dosing TNP Estimated GFR (MDRD) > 60 (>=60) mL/min Glucose 131 H (75-99) mg/dL Calcium 8.9 (8.4-10.1) mg/dL Creatine Kinase 43 (21-215) U/L Troponin I < 0.017 (0.00-0.06) ng/mL C-Reactive Protein 2.6 H (0.2-0.8) mg/dL NT-Pro-B Natriuret Pep 392 (0-1000) pg/mL Urine Color Yellow (YELLOW) Urine Appearance Clear (CLEAR) Urine pH 5.5 (4.5-8.0) Ur Specific [place] 1.010 (1.003-1.020) Urine Protein Negative (NEGATIVE) mg/dL Urine Glucose (UA) Negative (NEGATIVE) mg/dL Urine Ketones Negative (NEGATIVE) mg/dL Urine Occult Blood Negative (NEGATIVE) Urine Nitrite Negative (NEGATIVE) Urine Bilirubin Negative (NEGATIVE) Urine Urobilinogen 0.2 (0.2-1.0) EU/dL Ur Leukocyte Esterase Negative (NEGATIVE) Urine RBC Not seen (0-5) /HPF Urine WBC Not seen (0-5) /HPF Ur Squamous Epith Cells Few H (NOT SEEN) /HPF Departure - Departure Time of Disposition: 18:00 Disposition: Home, Self-Care 01 Clinical Impression: Requires continuous at home supplemental oxygen COPD (chronic obstructive pulmonary disease) Qualifiers: COPD type: unspecified COPD Qualified Code(s): J44.9 - Chronic obstructive pulmonary disease, unspecified - Discharge Information Instructions: Chronic Obstructive Pulmonary Disease, [id number], Home Oxygen Use, Adult Forms: ED Department Discharge Additional Instructions: 1) [facility] is en route to [facility] to make sure machine is working well 2) Laboratory work was normal today with no concerning findings, to include cardiac and heart failure tests. 3) Follow up with primary provider for routine care 4) Call if any questions or concerns, if symptoms would worsen, recommend returning to ER for reevaluation. - Problem List & Annotations (1) COPD (chronic obstructive pulmonary disease) SNOMED Code(s): 15946098 Code(s): J44.9 - CHRONIC OBSTRUCTIVE PULMONARY DISEASE, UNSPECIFIED Status : Acute Qualifiers: COPD type: unspecified COPD Qualified Code(s): J44.9 - Chronic obstructive pulmonary disease, unspecified (2) Requires continuous at home supplemental oxygen SNOMED Code(s): 398393325 Code(s): Z99.81 - DEPENDENCE ON SUPPLEMENTAL OXYGEN Status: Acute - Problem List Review Problem List Initiated/Reviewed/Updated: Yes - My Orders Last 24 Hours: My Active Orders 12/30/17 14:01 Chest 2V [CR] Stat - Assessment/Plan Last 24 Hours: My Active Orders 12/30/17 14:01 Chest 2V [CR] Stat Plan: Contacted [facility] and they are en route to [facility] to make sure her machine is working. Will discharge home at this time. She has been doing well in extended ER. Oxygen sat has been stable in the 94-96% range. She verbalized understanding and stated she is ready to go home.
== END 2017-12-30 18:30 | disposition home or self-care (01) ==
LOC: CC.ED 13:54
DX: J44.9 Chronic obstructive pulmonary disease, unspecified (principal); E78.00 Pure hypercholesterolemia, unspecified; I10 Essential (primary) hypertension; I25.2 Old myocardial infarction; K21.9 Gastro-esophageal reflux disease without esophagitis; E11.9 Type 2 diabetes mellitus without complications; E66.9 Obesity, unspecified; Z87.891 Personal history of nicotine dependence; Z88.1 Allergy status to other antibiotic agents; Z88.6 Allergy status to analgesic agent; Z88.5 Allergy status to narcotic agent; Z88.8 Allergy status to other drugs, medicaments and biological substances; Z88.2 Allergy status to sulfonamides; Z79.899 Other long term (current) drug therapy
CPT/HCPCS: 36415; 71046; 80048; 81001; 82550; 83880; 84484; 85025; 86140; 93005; 99283